=== PATIENT | female | born 1935 | race Caucasian/White ===

== ENCOUNTER 2021-07-27 18:53 | Inpatient (IN) | payer MEDICARE, SELFPAY ==
--- NOTE | ~2021-07-27 | XR_ITS ---
EXAMINATION: XR CHEST CLINICAL INFORMATION: Shortness of breath, dyspnea., Congestive heart failure, pneumonia COMPARISON: Chest CT 12/11/2017 TECHNIQUE: 2 views of the chest were obtained. FINDINGS: Calcified aortic arch. No focal consolidation or mass. No pleural effusion or pneumothorax. Normal pulmonary vascularity. The prior chest CT showed numerous pulmonary nodules, not seen by chest x-ray, either resolved or not seen for technical reasons. Normal heart size. Severe degenerative changes of the shoulders. XR/XR chest 2V IMPRESSION: No acute pulmonary disease. The prior chest CT showed numerous small pulmonary nodules which are not seen on the current chest x-ray possibly resolved or not seen for technical reasons.
--- NOTE | ~2021-07-27 | XR_ITS ---
EXAMINATION: XR SHOULDER, RIGHT CLINICAL INFORMATION: Pain. COMPARISON: Chest radiograph dated 07/27/2021 TECHNIQUE: Two views of the right shoulder. FINDINGS: There is severe degenerative arthritis in the right shoulder with joint space narrowing, marginal osteophytes, and articular cortical remodeling. There is degenerative arthritis in the acromioclavicular joint with soft tissue mineralization. Bones are osteopenic. No acute fractures are identified on these images. Soft tissues are unremarkable. XR/XR shoulder RT min 2V IMPRESSION: No acute fracture or malalignment at the right shoulder. 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
--- NOTE | ~2021-07-27 | US_ITS ---
EXAMINATION: US ABDOMEN COMPLETE CLINICAL INFORMATION: Elevated LFTs and right upper quadrant pain. COMPARISON: CT scan of the abdomen and pelvis dated 10/14/2018 TECHNIQUE: Real-time imaging of the abdominal viscera. There is some limitation secondary to bowel gas shadowing. FINDINGS: PANCREAS: Visualized portions unremarkable. ABDOMINAL AORTA: Visualized portions unremarkable. INFERIOR VENA CAVA: Visualized portions unremarkable. LIVER: Unremarkable. GALLBLADDER: No intraluminal abnormality, significant mural thickening or pericholecystic fluid. COMMON BILE DUCT: Normal in caliber measuring 0.4 cm in diameter. RIGHT KIDNEY: 8.2 cm. Unremarkable. LEFT KIDNEY: 10.0 cm. Unremarkable. SPLEEN: 9.8 cm. Unremarkable. FREE FLUID: None. US/US abdomen complete IMPRESSION: Unremarkable abdominal ultrasound.
[2021-07-27 19:04] VITALS: BP 150/90; BP 166/69; PULSE 89; PULSE 95; RESP 20; TEMP 36.6; O2SAT 97; O2SAT 98; BMI 26.1
--- NOTE | 2021-07-27 19:21 | ECG_ITS ---
Test Reason : CP Blood Pressure : / mmHG Vent. Rate : 089 BPM Atrial Rate : 089 BPM P-R Int : 196 ms QRS Dur : 126 ms QT Int : 410 ms P-R-T Axes : 063 -03 -03 degrees QTc Int : 498 ms Sinus rhythm with Premature atrial complexes Right bundle branch block Abnormal ECG When compared with ECG of 14-OCT-2018 03:15, Premature atrial complexes are now Present PA interval has decreased Questionable change in QRS duration Referred By: Urbano Ko Electronically Signed By:Conrado Wilder
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
[2021-07-27 22:01] LABS: MANUAL DIFF FLAG NO
[2021-07-27 22:02] LABS: Basophils Percent Auto 0.1 % (0-2); Eosinophils Percent Auto 0.1 % (0-4); Hematocrit 36.7 % (37.0-47.0); Hemoglobin 12.6 g/dl (12.0-16.0); Imm Gran Abs Auto 0.05 X10*3/uL (0.00-0.03); Imm Gran Pct Auto 0.4 % (0.0-0.4); Lymphocytes Absolute Auto 1.2 X10*3/uL (1.2-4.9); Lymphocytes Percent Auto 8.3 % (20-40); Mean Corpuscular HGB Conc 34.3 g/dl (31.0-35.0); Mean Corpuscular Hemoglobin 32.8 pg (27.0-33.0); Mean Corpuscular Volume 95.6 fL (80.0-98.0); Mean Platelet Volume 8.3 fL (9.4-12.3); Monocytes Absolute Auto 0.8 X10*3/uL (0.1-1.2); Monocytes Percent Auto 5.7 % (2-11); Neutrophils Absolute Auto 12.1 x10*3/uL (2.0-8.3); Neutrophils Percent Auto 85.4 % (45-73); Platelet Count 226 X10*3/uL (160-400); Red Blood Count 3.84 X10*6/uL (4.20-5.50); Red Cell Distribution Width 13.7 % (11.0-16.0); White Blood Count 14.2 X10*3/uL (4.8-10.8)
[2021-07-27 22:11] LABS: Lactic Acid 1.1 mmol/L (0.5-2.0)
[2021-07-27 22:16] LABS: COVID-19 Test Negative (Negative)
[2021-07-27 22:20] LABS: Troponin-I High Sensitivity 42.1 ng/L (<3.5-17.0)
[2021-07-27 22:21] LABS: Alanine Aminotransferase 1942 U/L (0-31); Albumin Level 4.1 g/dL (3.5-5.0); Alkaline Phosphatase 136 U/L (39-117); Anion Gap 15 (12-20); Aspartate Amino Transferase 1320 U/L (5-31); B Type Natriuretic Peptide 378 pg/mL (<100); Bilirubin Total 0.8 mg/dL (0.0-1.0); Blood Urea Nitrogen 33 mg/dL (9-16); Calcium 9.6 mg/dL (8.4-10.2); Carbon Dioxide 27 mmol/L (22-29); Chloride 95 mmol/L (96-108); Creatinine Clr Calc Pharmacy 35.2; Estimated Glomerular Filt Rate 59; Glucose Random 151 mg/dL (60-115); Lipase 125 U/L (8-78); Potassium 4.5 mmol/L (3.3-5.1); Sodium 132 mmol/L (135-145); Total Protein 6.6 g/dL (6.5-8.0)
[2021-07-27 22:24] VITALS: BP 173/64; PULSE 115; RESP 20; TEMP 36.6; O2SAT 98
[2021-07-27 22:47] VITALS: BP 167/65; PULSE 81; TEMP 36.7; O2SAT 97
--- NOTE | 2021-07-27 23:10 | ECG_ITS ---
Test Reason : chest pain Blood Pressure : / mmHG Vent. Rate : 099 BPM Atrial Rate : 099 BPM P-R Int : 208 ms QRS Dur : 120 ms QT Int : 394 ms P-R-T Axes : 080 -12 -22 degrees QTc Int : 505 ms Sinus rhythm with Premature atrial complexes Right bundle branch block Abnormal ECG When compared with ECG of 27-JUL-2021 19:19, No significant change was found Referred By: Urbano Ko Electronically Signed By:Conrado Wilder
[2021-07-27 23:25] LABS: Ethanol < 10 mg/dL
[2021-07-27 23:38] LABS: Delay - Chemistry DELAY
[2021-07-27 23:39] LABS: Acetaminophen LAB 10 mcg/mL (<30)
[2021-07-27 23:45] VITALS: BP 163/64; PULSE 117; RESP 13; O2SAT 96
[2021-07-28] VITALS (9 sets, daily range): BP systolic 134–167; BP diastolic 64–106; PULSE 64–130; RESP 14–32; TEMP 35.6–36.9; O2SAT 95–98
[2021-07-28 00:14] LABS: Partial Thromboplastin Time 28.7 SEC (24.1-38.0)
--- NOTE | 2021-07-28 00:36 | PM.IMHP ---
History of Present Illness Date of Service: 07/28/21 Chief Complaint: shortness of breath 86-year-old female with a past medical history of hypertension, hyperlipidemia, diabetes, chronic back pain, anxiety, depression presented to the hospital with a chief complaint of shortness of breath. Patient reported that she has chronic back pain and has been taking oxycodone about 4-5 times per day. For the past 1 week she has stopped taking Oxycodone as was not given by her daughter. And has been on Tylenol which she takes 8 pills per day for the past 7-8 days. Reports that over the past 2 days she has been having shortness of breath, chest pain, dyspnea on exertion. Also complains of diarrhea. Denies any fever chills and cough. Currently denies any active chest pain at the time of my interview. Patient reports that she is mostly sedentary at home usually goes down for dinner from her room Patient denies any cough or sputum production. Denies any urinary symptoms. Review of all other systems is negative except mentioned above ER course: Per ER team patient noted to be tachycardic; EKG showed sinus arrhythmia; troponin 42.1-31.5; patient noted to have Tylenol level less than 10 -concern for an intentional Tylenol overdose. Liver enzymes elevated to AST 13 20, ALT 1942, T bili 0.8, INR 1.2. Patient mentating well; ammonia level 67. Given concerns for liver toxicity secondary to Tylenol overdose-ER team discussed with poison control who suggested to start the patient on NAC protocol and admitted to the general medical floors. Also recommended to repeat liver panel every 8 hours. D-dimer was positive-CT chest pending. [facility] Pertinent family history: Reviewed Social History Advance Directives: No Meds Allergies Allergy/AdvReac Type Severity Reaction Status Date / Time No Known Allergies Allergy Unverified 02/10/20 14:39 Active Medications: Current Medications Acetylcysteine 5,860 mg/ (Dextrose) 1,029.3 mls @ 62.5 mls/hr IV ONCE ONE Stop: 07/28/21 21:28 Acetylcysteine 8,790 mg/ (Dextrose) 243.95 mls @ 200 mls/hr IV ONCE ONE Stop: 07/28/21 01:13 Acetylcysteine 2,930 mg/ (Dextrose) 514.65 mls @ 125 mls/hr IV ONCE ONE Stop: 07/28/21 05:07 Home Medications Medication Instructions Recorded Confirmed Last Taken Type amitriptyline 50 mg tablet mg PO 07/28/21 Unknown History atenolol 25 mg tablet 1 tab PO DAILY 07/28/21 07/28/21 Unknown History escitalopram oxalate 20 mg tablet 1 tab PO DAILY 07/28/21 07/28/21 Unknown History hydrochlorothiazide 25 mg tablet 1 tab PO DAILY 07/28/21 07/28/21 Unknown History ketoconazole 2 % topical cream 1 appl TOPICAL DAILY 07/28/21 07/28/21 Unknown History melatonin 3 mg tablet 1 tab PO BEDTIME PRN 07/28/21 07/28/21 Unknown History metformin 500 mg tablet 1 tab PO BID 07/28/21 07/28/21 Unknown History perphenazine 4 mg tablet 1 tab PO BID 07/28/21 07/28/21 Unknown History pravastatin 40 mg tablet 1 tab PO BEDTIME 07/28/21 07/28/21 Unknown History sertraline 25 mg tablet 1 tab PO DAILY 07/28/21 07/28/21 Unknown History Physical Exam Vital Signs and Narrative: Vital Signs: Last Vital Signs Temp 98.1 F 07/27/21 22:47 Pulse 117 H 07/27/21 23:45 Resp 13 07/27/21 23:45 BP 163/64 H 07/27/21 23:45 Pulse Ox 96 07/27/21 23:45 BMI result Body Mass Index 26.1 Gen: Appears be in no acute distress HEENT: NCAT, Moist mucosa. Pulmonary: Vesicular breath sounds, fair air entry CVS: Normal S1-S2 Abdomen: BS+, Soft, Nontender Extremities: Warm well perfused Neuro: Alert and awake. Results Labs CBC and Chem 7: 07/28/21 05:55 07/27/21 21:53 Labs: Laboratory Results - last 24 hr 07/27/21 07/27/21 07/27/21 21:53 21:53 21:53 MCV MCH MCHC RDW Plt Count MPV Immature Gran % (Auto) Neut % (Auto) Lymph % (Auto) [place] % (Auto) Eos % (Auto) Baso % (Auto) Lymph # (Auto) [place] # (Auto) Eos # (Auto) Baso # (Auto) Abs Immat Gran (auto) Absolute Neuts (auto) Absolute Nucleated RBC Nucleated RBC % (auto) APTT Anion Gap 15 Estim Creat Clear Calc 35.2 Estimated GFR 59 Random Glucose 151 H Lactic Acid Calcium 9.6 Total Bilirubin 0.8 AST 1320 H ALT 1942 H Alkaline Phosphatase 136 H B-Natriuretic Peptide 378 H Total Protein 6.6 Albumin 4.1 Lipase 125 H Specimen Comment Acetaminophen 10 Ethyl Alcohol COVID-19 (BRENDA) Negative COVID-19 Clin Com See Note 07/27/21 07/27/21 07/27/21 21:53 21:53 21:54 MCV 95.6 MCH 32.8 MCHC 34.3 RDW 13.7 Plt Count 226 MPV 8.3 L Immature Gran % (Auto) 0.4 Neut % (Auto) 85.4 H Lymph % (Auto) 8.3 L [place] % (Auto) 5.7 Eos % (Auto) 0.1 Baso % (Auto) 0.1 Lymph # (Auto) 1.2 [place] # (Auto) 0.8 Eos # (Auto) 0.0 Baso # (Auto) 0.0 Abs Immat Gran (auto) 0.05 H Absolute Neuts (auto) 12.1 H Absolute Nucleated RBC 0.000 Nucleated RBC % (auto) 0.0 APTT Anion Gap Estim Creat Clear Calc Estimated GFR Random Glucose Lactic Acid 1.1 Calcium Total Bilirubin AST ALT Alkaline Phosphatase B-Natriuretic Peptide Total Protein Albumin Lipase Specimen Comment Acetaminophen Ethyl Alcohol < 10 COVID-19 (BRENDA) COVID-19 Clin Com 07/27/21 07/27/21 23:37 23:43 MCV MCH MCHC RDW Plt Count MPV Immature Gran % (Auto) Neut % (Auto) Lymph % (Auto) [place] % (Auto) Eos % (Auto) Baso % (Auto) Lymph # (Auto) [place] # (Auto) Eos # (Auto) Baso # (Auto) Abs Immat Gran (auto) Absolute Neuts (auto) Absolute Nucleated RBC Nucleated RBC % (auto) APTT 28.7 Anion Gap Estim Creat Clear Calc Estimated GFR Random Glucose Lactic Acid Calcium Total Bilirubin AST ALT Alkaline Phosphatase B-Natriuretic Peptide Total Protein Albumin Lipase Specimen Comment DELAY Acetaminophen Ethyl Alcohol COVID-19 (BRENDA) COVID-19 Clin Com Imaging Radiologist's Impressions: Impressions Chest X-Ray 07/27/21 21:35 IMPRESSION: No acute pulmonary disease. The prior chest CT showed numerous small pulmonary nodules which are not seen on the current chest x-ray possibly resolved or not seen for technical reasons. Assessment and Plan (1) Unintentional Tylenol overdose: Status: Acute (2) Abnormal LFTs (liver function tests): Status: Acute Plan 86-year-old female with a past medical history of hypertension, hyperlipidemia, diabetes, chronic back pain, anxiety, depression presented to the hospital with a chief complaint of shortness of breath/ARMSTRONG, chest pain. SOB/ARMSTRONG/chest pain: Currently denies any chest pain. EKG nonischemic. Troponins indeterminate and plateaued. D-dimer positive-CT chest pending Tachycardia: Likely in the setting of dehydration. Patient continued her home metoprolol. Also given gentle IV fluids. unintentional Tylenol overdose/ liver injury: poison control was notified-recommended Monitor liver enzymes every 8 hours. started on NAC protocol patient currently mentating well INR is 1.2. Mildly elevated ammonia levels of 67--> lactulose ? opiate withdrawal: Patient's of oxycodone 7-8 days ago. will monitor on COWS protocol. Addiction medicine consult Poor access: patient has very poor access. ER team tried multiple times with no significant success. I spoke to ER attending who is going to put an IJ line. Unable to finish the CT scan given access concerns. Will be sent after the IJ line is placed. Hypertension: Continue home atenolol Diabetes: Insulin sliding scale Anxiety / depression: Continue home medications DVT prophylaxis: SCD boots Code status: Full code off note: Patient reports that patient's daughter has not been giving her home oxycodone. Will consult case management/social service technician for home safety evaluation. Quality Stroke Does the patient have a stroke diagnosis?: No VTE Prior VTE?: No VTE Risk Level:: Medical - moderate - high VTE Device Contraindication: N/A - Device Ordered VTE Drug Contraindication: Treatment Not Indicated
[2021-07-28 00:40] LABS: INTERNATIONAL NORM RATIO 1.2 (0.9-1.1); Prothrombin Time 14.1 SEC (9.9-13.0)
[2021-07-28] MEDS: Morphine Sulfate 4 MG/ML CARTRIDGE IVPUSH (00:47)
[2021-07-28 01:13] LABS: Salicylate < 5.0 mg/dL (15-30)
--- NOTE | 2021-07-28 01:19 | PC.NURSE ---
Helped pt to commode. Pt still had jeans on, helped take them off and soiled depends. Pt wanted a new depend got underwear and pad for pt. got her comfortable in bed with warm blankets and a pillow.
[2021-07-28 01:32] LABS: Ammonia 67 umol/L (13-55)
[2021-07-28 01:44] LABS: Troponin-I High Sensitivity 31.5 ng/L (<3.5-17.0)
[2021-07-28] MEDS: atenoloL 25 MG TABLET PO (02:44)
[2021-07-28 03:09] LABS: D Dimer High Sensitivity 733 NG/ML
[2021-07-28] MEDS: 0.9 % Sodium Chloride 500 ML IV (05:16)
--- NOTE | 2021-07-28 06:00 | PC.NURSE ---
Multiple RNs attempted to obtain IV access prior to PT receiving CTA. IV access was established in left AC prior to being transported to CT. During CT scan contrast infusion, the vein blew and infusion infiltrated. Hospitalist made aware, plan was for ED provider to obtain IV access through IJV and then complete CT scan.
[2021-07-28 06:26] LABS: MANUAL DIFF FLAG NO
[2021-07-28 06:31] LABS: Basophils Percent Auto 0.2 % (0-2); Eosinophils Percent Auto 0.3 % (0-4); Hemoglobin 11.9 g/dl (12.0-16.0); Imm Gran Abs Auto 0.04 X10*3/uL (0.00-0.03); Imm Gran Pct Auto 0.3 % (0.0-0.4); Lymphocytes Absolute Auto 1.2 X10*3/uL (1.2-4.9); Lymphocytes Percent Auto 9.9 % (20-40); Mean Corpuscular Hemoglobin 32.3 pg (27.0-33.0); Mean Corpuscular Volume 95.1 fL (80.0-98.0); Mean Platelet Volume 8.8 fL (9.4-12.3); Monocytes Absolute Auto 0.9 X10*3/uL (0.1-1.2); Monocytes Percent Auto 7.2 % (2-11); Neutrophils Absolute Auto 9.6 x10*3/uL (2.0-8.3); Neutrophils Percent Auto 82.1 % (45-73); Platelet Count 221 X10*3/uL (160-400); Red Blood Count 3.68 X10*6/uL (4.20-5.50); Red Cell Distribution Width 13.2 % (11.0-16.0); White Blood Count 11.8 X10*3/uL (4.8-10.8)
[2021-07-28 06:48] LABS: Anion Gap 12 (12-20); Blood Urea Nitrogen 28 mg/dL (9-16); Calcium 8.5 mg/dL (8.4-10.2); Carbon Dioxide 27 mmol/L (22-29); Chloride 97 mmol/L (96-108); Creatinine Clr Calc Pharmacy 38.6; Estimated Glomerular Filt Rate > 60; Glucose Random 222 mg/dL (60-115); Potassium 3.1 mmol/L (3.3-5.1); Sodium 133 mmol/L (135-145)
[2021-07-28 07:19] LABS: Glucose, Whole Blood 174 mg/dL (60-115)
[2021-07-28 07:46] LABS: Alanine Aminotransferase 1564 U/L (0-31); Albumin Level 3.5 g/dL (3.5-5.0); Alkaline Phosphatase 114 U/L (39-117); Aspartate Amino Transferase 794 U/L (5-31); Bilirubin Direct 0.3 mg/dL (0.0-0.5); Bilirubin Total 0.5 mg/dL (0.0-1.0); Total Protein 5.5 g/dL (6.5-8.0)
--- NOTE | 2021-07-28 08:14 | PC.NURSE ---
Pt is a/o requesting to leave AMA to go home and take care of her . Despite multiple attempts to educate pt on tylenol OD and toxicity. Dr Torrez at bedside to speak with patient.
[2021-07-28] MEDS: Insulin Lispro 100 UNIT/ML 3 ML VIAL SUBCUT ×4 (08:17→20:59)
[2021-07-28] MEDS: Lactulose 20 GM/30 ML SOLUTION PO (08:18)
[2021-07-28] MEDS: Dextrose 5 % and 0.45 % NaCl 1,000 ML 75 ML IVCONT (08:31)
--- NOTE | 2021-07-28 09:23 | PC.NURSE ---
RN spoke with poison control and they recommend the following tests around 8pm. 1. Tylenol level 2. Liver function panel 3. INR Will notify about orders. Call back number for [place] [facility] is [phone]. notified at 0927am
[2021-07-28] MEDS: Morphine Sulfate 2 MG/ML CARTRIDGE IVPUSH ×2 (12:52→21:03)
--- NOTE | 2021-07-28 12:57 | PC.NURSE ---
Pt started talking about leaving AMA again. Pt education provided. Dr Wadsworth made aware. Pt provided with morphine for pain, and pt requesting imodium to help with her colitis diarrhea. Dr Wadsworth made aware.
[2021-07-28 12:59] LABS: Glucose, Whole Blood 156 mg/dL (60-115)
[2021-07-28] MEDS: Loperamide HCl 2 MG CAPSULE PO (13:42)
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
[2021-07-28 16:31] LABS: Glucose, Whole Blood 158 mg/dL (60-115)
--- NOTE | 2021-07-28 18:06 | PM.EVENT ---
Event Note Date of Service: 07/28/21 Event Note: GI Consult-Full note dictated-Hx via patient and EMR Imp: Acute hepatitis due to probable Acetaminophen toxicity based on labs and clinical history. She does not appear to have any chronic underlying liver disease based on her exam and history. She has no signs of right-sided heart failure. Her labs look improved today and there are no signs of liver failure. She does describe some RUQ discomfort and does have some RUQ tenderness, but overall appears very comfortable. Rec: Complete Acetylcysteine protocol, follow LFT's, check abdominal U/S(ordered), supportive care, and hold statin until LFT's normalize as an outpatient. I have also ordered hepatitis viral serologies and autoimmune markers re: acute hepatitis, but I do suspect they will be negative. D/W patient. Thanks
--- NOTE | 2021-07-28 20:08 | CONS_ITS ---
DATE OF SERVICE: 07/28/2021 REQUESTING PHYSICIAN: Dr. Sanchez. REASON FOR CONSULTATION: Elevated LFTs. HISTORY OF PRESENT ILLNESS: The patient is an 86-year-old female, who describes the onset of some progressive weakness, nausea, and feeling shaky. She was also having some chest discomfort. She came to the ER for evaluation and was found to have markedly elevated liver enzymes. The patient denies any previous history of liver disease in herself nor family members. She does not use any alcohol. She has not been using any new prescription medication and is on a chronic statin for cholesterol. However, she does describe using a lot of Tylenol over the past 10 to 14 days. She describes using 2 extra-strength Tylenol at least 4 times a day for some pain. She does not use any NSAIDs. She denies any signs of jaundice. She does have some intermittent right upper quadrant pain, although that seems to be more chronic. She denies any vomiting. She did not notice any particular diarrhea, melena, nor hematochezia. She has not noticed any lower extremity edema nor discolored urine. She denies any known fevers at home. MEDICATIONS: At home include amitriptyline, atenolol, escitalopram, hydrochlorothiazide, melatonin p.r.n., metformin, pravastatin, and perphenazine. Her medications here in the hospital include IV acetylcysteine, atenolol, sliding scale insulin, Imodium p.r.n., morphine p.r.n., and Senokot p.r.n. PAST MEDICAL HISTORY: 1. Hysterectomy. 2. Appendectomy. 3. Hypertension. 4. Hyperlipidemia. 5. Diabetes mellitus. 6. Chronic back pain. 7. Anxiety and depression. She denies any history of DE, stroke, nor kidney disease. SOCIAL HISTORY: She does not smoke nor use any alcohol. She is and lives with her family and . FAMILY HISTORY: Noncontributory. REVIEW OF SYSTEMS: CONSTITUTIONAL: Up until the past week or so, she reports that she has been feeling fairly well with good appetite. SKIN: No rash, no pruritus. CARDIAC: No chest pain. PULMONARY: No coughing or hemoptysis. GI: As above. PHYSICAL EXAMINATION: GENERAL: The patient is a pleasant, alert, comfortable-appearing female, in no distress. She has been afebrile. SKIN: Warm, dry. No spider angiomata. NECK: Supple without lymphadenopathy. CARDIAC: Normal S1, S2. ABDOMEN: Soft, nondistended. Normal bowel sounds with some mild right upper quadrant tenderness without palpable mass. EXTREMITIES: Without edema. LABORATORY DATA: White blood cell count on admission was 14.2 with repeat of 11.8, hemoglobin 11.9, and platelets 221,000. Her PT was 14.1 with INR 1.2. Her initial chemistries revealed a sodium 132, potassium 4.5, BUN 33, creatinine 0.9, total bilirubin 0.8, AST 1320, ALT 1942, and alkaline phosphatase 136. In June of 2019, she had a normal liver profile except for an alkaline phosphatase 157. Her lipase was 125. Repeat laboratories from this morning revealed total bilirubin 0.5, AST down to a level of 794, ALT down to a level of 1564, and alkaline phosphatase were 114. Ammonia level was 67. Albumin 3.5. Her toxicology screen revealed an acetaminophen level of 10 as of 10 p.m. last evening. Salicylates less than 5.0 and alcohol levels nondetectable. Chest x-ray was negative for any acute disease. IMPRESSION: Given the patient's clinical history, this seems consistent with an acute hepatitis in relation to acetaminophen toxicity. She does not show any signs of liver failure and her abdominal exam seems benign. She does not show any stigmata of chronic liver disease on her exam nor by her laboratories. She does appear to be already improving based on her laboratories on the IV acetylcysteine protocol. At this point. I would continue completion of the acetylcysteine IV protocol. I will continue to follow her LFTs. I would check an abdominal ultrasound to be complete given the elevated LFTs and the occasional right upper quadrant discomfort. I would otherwise continue supportive care. I would hold her statin medication untll her LFTs completely normalize as an outpatient and she can follow up with her primary care doctor. I did order hepatitis viral serologies, and autoimmune markers regarding the acute hepatitis, but I do suspect those will be negative, and again I feel this is consistent with acetaminophen toxicity. This has been discussed with the patient. Thank you for the consultation. MD XIN Scherer/DIAMOND / [id number] SADE
[2021-07-28 20:26] LABS: INTERNATIONAL NORM RATIO 1.2 (0.9-1.1); Prothrombin Time 13.9 SEC (9.9-13.0)
[2021-07-28 20:27] LABS: Glucose, Whole Blood 159 mg/dL (60-115)
[2021-07-28 20:46] LABS: Alanine Aminotransferase 1238 U/L (0-31); Albumin Level 3.5 g/dL (3.5-5.0); Alkaline Phosphatase 121 U/L (39-117); Aspartate Amino Transferase 383 U/L (5-31); Bilirubin Direct 0.3 mg/dL (0.0-0.5); Bilirubin Total 0.5 mg/dL (0.0-1.0); Total Protein 5.6 g/dL (6.5-8.0)
[2021-07-28] MEDS: 0.9 % Sodium Chloride Flush 3 ML SYRINGE IVFLUSH (20:59)
[2021-07-28 21:01] LABS: Acetaminophen LAB < 1 mcg/mL (<30)
[2021-07-29] VITALS (8 sets, daily range): BP systolic 130–173; BP diastolic 60–86; PULSE 50–128; RESP 14–18; TEMP 35.9–36.3; O2SAT 94–98
[2021-07-29 06:25] LABS: Hematocrit 32.7 % (37.0-47.0); Hemoglobin 11.2 g/dl (12.0-16.0); Mean Corpuscular HGB Conc 34.3 g/dl (31.0-35.0); Mean Corpuscular Hemoglobin 32.3 pg (27.0-33.0); Mean Corpuscular Volume 94.2 fL (80.0-98.0); Mean Platelet Volume 8.8 fL (9.4-12.3); Platelet Count 200 X10*3/uL (160-400); Red Blood Count 3.47 X10*6/uL (4.20-5.50); Red Cell Distribution Width 13.3 % (11.0-16.0); White Blood Count 7.3 X10*3/uL (4.8-10.8)
[2021-07-29 06:29] LABS: INTERNATIONAL NORM RATIO 1.2 (0.9-1.1); Prothrombin Time 14.1 SEC (9.9-13.0)
[2021-07-29 07:14] LABS: Alanine Aminotransferase 927 U/L (0-31); Albumin Level 3.2 g/dL (3.5-5.0); Alkaline Phosphatase 100 U/L (39-117); Anion Gap 12 (12-20); Aspartate Amino Transferase 216 U/L (5-31); Bilirubin Direct 0.4 mg/dL (0.0-0.5); Bilirubin Total 0.5 mg/dL (0.0-1.0); Blood Urea Nitrogen 14 mg/dL (9-16); Calcium 8.4 mg/dL (8.4-10.2); Carbon Dioxide 26 mmol/L (22-29); Chloride 98 mmol/L (96-108); Creatinine Clr Calc Pharmacy 46.4; Estimated Glomerular Filt Rate > 60; Glucose Fasting 185 mg/dL (60-99); Sodium 133 mmol/L (135-145); Total Protein 5.1 g/dL (6.5-8.0)
[2021-07-29 08:20] LABS: Glucose, Whole Blood 200 mg/dL (60-115)
--- NOTE | 2021-07-29 08:26 | P.PNIM_ITS ---
Subjective Subjective Date of Service: 07/29/21 Interval History: cc: chest pain (reporting taking lots of tylenol) interval history: overall feeling better, did not sleep well Cardiovascular Cardiovascular: Reports no additional cardiovascular complaints Respiratory Respiratory: Reports no additional respiratory complaints Physical Exam 2 Vital Signs: Vital Signs: Last Vital Signs Temp 96.8 F 07/29/21 07:14 Pulse 50 07/29/21 07:14 Resp 18 07/29/21 07:14 BP 173/81 H 07/29/21 07:14 Pulse Ox 94 07/29/21 07:14 BMI result Body Mass Index 26.1 General: AO X 3, no acute distress Resp: CTA bilateral, no accessory muscles used CVS: S1,S2,RRR GI: soft, non tender, non distended Neuro: motor grossly intact, alert Psych: appropriate affect, appropriate insight Objective Data Active Medications Dextrose (Dextrose 50 % 25 Gm/50 Ml Vial) 25 gm IVPUSH Q15M PRN; Protocol PRN Reason: per Hypoglycemia Standing Ord. Glucose (Glucose Gel 15 Gm Gel..Gram.) 15 gm PO Q15M PRN; Protocol PRN Reason: per Hypoglycemia Standing Ord. Acetylcysteine 5,860 mg/ (Dextrose) 1,029.3 mls @ 64.331 mls/hr IV ONCE ONE Stop: 07/29/21 14:59 Last Admin: 07/28/21 23:04 Dose: 64.33 mls/hr Documented by: JUAN Insulin Human Lispro (Insulin Lispro 100 Unit/Ml 3 Ml Vial) [facility]; Protocol Last Admin: 07/28/21 20:59 Dose: 2 unit Documented by: JUAN Loperamide HCl (Loperamide Hcl 2 Mg Capsule) 2 mg PO Q6H PRN PRN Reason: Diarrhea Last Admin: 07/28/21 13:42 Dose: 2 mg Documented by: JOSE Morphine Sulfate (Morphine Sulfate 2 Mg/Ml Cartridge) 2 mg IVPUSH Q3H PRN; Protocol PRN Reason: moderate pain Last Admin: 07/28/21 21:03 Dose: 2 mg Documented by: JUAN Senna (Sennosides 8.6 Mg Tablet) 17.2 mg PO BEDTIME PRN PRN Reason: Constipation Sodium Chloride (0.9 % Sodium Chloride Flush 3 Ml Syringe) 3 ml IVFLUSH QSHIFT FILIPPO Last Admin: 07/28/21 20:59 Dose: 3 ml Documented by: JUAN Labs CBC & Chem 7: 07/29/21 05:52 07/29/21 05:52 Labs: Laboratory Results - last 24 hr 07/28/21 07/28/21 07/28/21 12:51 15:56 19:32 MCV MCH MCHC RDW Plt Count MPV Absolute Nucleated RBC Nucleated RBC % (auto) PT INR Anion Gap Estim Creat Clear Calc Estimated GFR POC Glucose 156 H 158 H 159 H Fasting Glucose Calcium Total Bilirubin Direct Bilirubin AST ALT Alkaline Phosphatase Total Protein Albumin Acetaminophen 07/28/21 07/28/21 07/29/21 19:57 19:57 05:52 MCV 94.2 MCH 32.3 MCHC 34.3 RDW 13.3 Plt Count 200 MPV 8.8 L Absolute Nucleated RBC 0.000 Nucleated RBC % (auto) 0.0 PT 13.9 H INR 1.2 H Anion Gap Estim Creat Clear Calc Estimated GFR POC Glucose Fasting Glucose Calcium Total Bilirubin 0.5 Direct Bilirubin 0.3 AST 383 H ALT 1238 H Alkaline Phosphatase 121 H Total Protein 5.6 L Albumin 3.5 Acetaminophen < 1 07/29/21 07/29/21 07/29/21 05:52 05:52 07:13 MCV MCH MCHC RDW Plt Count MPV Absolute Nucleated RBC Nucleated RBC % (auto) PT 14.1 H INR 1.2 H Anion Gap 12 Estim Creat Clear Calc 46.4 Estimated GFR > 60 POC Glucose 200 H Fasting Glucose 185 H Calcium 8.4 Total Bilirubin 0.5 Direct Bilirubin 0.4 AST 216 H ALT 927 H Alkaline Phosphatase 100 Total Protein 5.1 L Albumin 3.2 L Acetaminophen Microbiology Microbiology Results: Microbiology 07/27/21 22:08 Blood Culture - Preliminary Blood - Venous No growth after 24 hours. 07/27/21 21:53 Blood Culture - Preliminary Blood - Venous No growth after 24 hours. Assessment and Plan (1) Unintentional Tylenol overdose: Status: Acute Plan 86F presented with vague complaints of chest, back pain, sob, found to have tylenol toxicity acute hepatitis due to unintentional acetominophen overdose lfts improving contnue NAC per toxicology monitor lfts patient denies suicidal ideation opiate dependence with withdrawal addication specialist appreciated continue morphine for now DM inuslin pocs HTN hctz atenolol dvt prophylaxis - lovenox full code reason for continued hospitalization: continues to be at risk for liver failure due to tylenol toxicity, continuing iv nac and close monitoring of LFTs. Quality Stroke Does the patient have a stroke diagnosis?: No VTE Prior VTE?: No VTE Risk Level:: Medical - moderate - high VTE Device Contraindication: N/A - Device Ordered VTE Drug Contraindication: Treatment Not Indicated
[2021-07-29] MEDS: Insulin Lispro 100 UNIT/ML 3 ML VIAL SUBCUT ×4 (08:30→20:55)
[2021-07-29] MEDS: Loperamide HCl 2 MG CAPSULE PO (08:31)
[2021-07-29] MEDS: atenoloL 25 MG TABLET PO (09:21)
[2021-07-29] MEDS: hydroCHLOROthiazide 25 MG TABLET PO (09:21)
[2021-07-29] MEDS: Enoxaparin Sodium 40 MG/0.4 ML SYRINGE SUBCUT (09:22)
--- NOTE | 2021-07-29 11:27 | MHC.CM.PN ---
CALL FROM [facility]. RAMON ASKED IF PATIENT IS ABLE TO PARTICIPATE IN AN INTERVIEW. PER CONVERSATION WITH PATIENT, SHE IS WILLING AND ABLE OT DISCUSS WITH PROTECTIVE SERVICES. RAMON STATES THAT SOMEONE WILL BE HERE THIS WEEK. RAMON ALSO MADE AWARE THAT PATIENT HAS MADE ATTEMPTS TO LEAVE IF PATIENT DOES RETURN HOME, SS WILL BE NOTIFIED.
[2021-07-29 11:58] LABS: Glucose, Whole Blood 261 mg/dL (60-115)
[2021-07-29 16:20] LABS: Glucose, Whole Blood 160 mg/dL (60-115)
[2021-07-29] MEDS: Morphine Sulfate 2 MG/ML CARTRIDGE IVPUSH ×2 (16:37→20:54)
[2021-07-29] MEDS: 0.9 % Sodium Chloride Flush 3 ML SYRINGE IVFLUSH (16:37)
--- NOTE | 2021-07-29 16:58 | PC.NURSE ---
pt reports feeling depressed and expressing suicidal thoughts. [place] scale went over with pt, deemed high risk per the scale. Dr Torrez made aware. Nursing supervisor parachute manufacturing made aware. Sitter placed in room. will continue to monitor
[2021-07-29 19:44] LABS: Glucose, Whole Blood 161 mg/dL (60-115)
[2021-07-29 20:13] LABS: Glucose, Whole Blood 175 mg/dL (60-115)
[2021-07-30] VITALS (8 sets, daily range): BP systolic 135–182; BP diastolic 69–93; PULSE 67–109; RESP 14–18; TEMP 35.8–36.8; O2SAT 95–98
--- NOTE | 2021-07-30 | ECG_ITS ---
Test Reason : FREQUENT PAC'S ? AFIB Blood Pressure : / mmHG Vent. Rate : 121 BPM Atrial Rate : 138 BPM P-R Int : 208 ms QRS Dur : 124 ms QT Int : 334 ms P-R-T Axes : 000 -07 -20 degrees QTc Int : 474 ms Sinus tachycardia with Premature supraventricular complexes Right bundle branch block Abnormal ECG When compared with ECG of 27-JUL-2021 23:24, T wave inversion more evident in Anterior leads Referred By: Jaspreet Torrez Electronically Signed By:EARNEST CAMPBELL MD
[2021-07-30] MEDS: 0.9 % Sodium Chloride Flush 3 ML SYRINGE IVFLUSH ×3 (00:08→17:05)
[2021-07-30] MEDS: Morphine Sulfate 2 MG/ML CARTRIDGE IVPUSH ×2 (01:13→06:51)
[2021-07-30 05:55] LABS: Hematocrit 33.2 % (37.0-47.0); Hemoglobin 11.5 g/dl (12.0-16.0); Mean Corpuscular HGB Conc 34.6 g/dl (31.0-35.0); Mean Corpuscular Hemoglobin 32.7 pg (27.0-33.0); Mean Corpuscular Volume 94.3 fL (80.0-98.0); Mean Platelet Volume 8.8 fL (9.4-12.3); Platelet Count 214 X10*3/uL (160-400); Red Blood Count 3.52 X10*6/uL (4.20-5.50); Red Cell Distribution Width 13.4 % (11.0-16.0); White Blood Count 6.3 X10*3/uL (4.8-10.8)
[2021-07-30 06:03] LABS: INTERNATIONAL NORM RATIO 1.1 (0.9-1.1); Prothrombin Time 12.5 SEC (9.9-13.0)
[2021-07-30 06:19] LABS: Alanine Aminotransferase 646 U/L (0-31); Albumin Level 3.3 g/dL (3.5-5.0); Alkaline Phosphatase 108 U/L (39-117); Anion Gap 12 (12-20); Aspartate Amino Transferase 94 U/L (5-31); Bilirubin Direct 0.3 mg/dL (0.0-0.5); Bilirubin Total 0.5 mg/dL (0.0-1.0); Blood Urea Nitrogen 11 mg/dL (9-16); Calcium 8.8 mg/dL (8.4-10.2); Carbon Dioxide 31 mmol/L (22-29); Chloride 95 mmol/L (96-108); Creatinine Clr Calc Pharmacy 47.8; Estimated Glomerular Filt Rate > 60; Glucose Fasting 139 mg/dL (60-99); Potassium 2.8 mmol/L (3.3-5.1); Sodium 135 mmol/L (135-145); Total Protein 5.5 g/dL (6.5-8.0)
--- NOTE | 2021-07-30 06:43 | PC.NURSE ---
IMC called to floor as patient heart rate went into 150s. Patient was ambulating to bathroom. Heartrate tends to elevate when OOB
[2021-07-30 07:14] LABS: Glucose, Whole Blood 137 mg/dL (60-115)
[2021-07-30 07:43] LABS: HBc Num1 0.06 S/CO (0.00-0.79); Hepatitis B Core Antibody Nonreactive (Nonreactive); ~HepC Num1 0.17 S/CO (0.00-0.79); ~Hepatitis B Surface Antibody NONREACTIVE (Nonreactive); ~Hepatitis C Antibody Nonreactive (Nonreactive)
[2021-07-30 07:50] LABS: Hepatitis B Surface Antigen Negative (Negative)
--- NOTE | 2021-07-30 08:31 | HO.PM.IMPN ---
Subjective Subjective Date of Service: 07/30/21 Interval History: cc: vague pain interval history: pain better, having suicidal thoughts Respiratory Respiratory: Reports no additional respiratory complaints Gastrointestinal Gastrointestinal: Reports no additional gastrointestinal complaints Physical Exam Vital Signs: Vital Signs: Last Vital Signs Temp 97.2 F 07/30/21 06:56 Pulse 69 07/30/21 06:56 Resp 18 07/30/21 06:56 BP 169/69 H 07/30/21 06:56 Pulse Ox 95 07/30/21 06:56 BMI result Body Mass Index 26.1 General: AO X 3, no acute distress Resp: CTA bilateral, no accessory muscles used CVS: S1,S2,RRR GI: soft, non tender, non distended Neuro: motor grossly intact, alert Psych: teary, expressing suicidal thoughts Objective Data Active Medications Atenolol (Atenolol 25 Mg Tablet) 25 mg PO DAILY [facility]; Protocol Last Admin: 07/29/21 09:21 Dose: 25 mg Documented by: THADDEUS Dextrose (Dextrose 50 % 25 Gm/50 Ml Vial) 25 gm IVPUSH Q15M PRN; Protocol PRN Reason: per Hypoglycemia Standing Ord. Enoxaparin Sodium (Enoxaparin Sodium 40 Mg/0.4 Ml Syringe) 40 mg SUBCUT Q24H FILIPPO Last Admin: 07/29/21 09:22 Dose: 40 mg Documented by: THADDEUS Glucose (Glucose Gel 15 Gm Gel..Gram.) 15 gm PO Q15M PRN; Protocol PRN Reason: per Hypoglycemia Standing Ord. Hydrochlorothiazide (Hydrochlorothiazide 25 Mg Tablet) 25 mg PO DAILY [facility]; Protocol Last Admin: 07/29/21 09:21 Dose: 25 mg Documented by: THADDEUS Insulin Human Lispro (Insulin Lispro 100 Unit/Ml 3 Ml Vial) 0 unit SUBCUT QIDACHS [facility]; Protocol Last Admin: 07/29/21 20:55 Dose: 2 unit Documented by: JUANITO Loperamide HCl (Loperamide Hcl 2 Mg Capsule) 2 mg PO Q6H PRN PRN Reason: Diarrhea Last Admin: 07/29/21 08:31 Dose: 2 mg Documented by: THADDEUS Morphine Sulfate (Morphine Sulfate 2 Mg/Ml Cartridge) 2 mg IVPUSH Q3H PRN; Protocol PRN Reason: moderate pain Last Admin: 07/30/21 06:51 Dose: 2 mg Documented by: CHAPIN Senna (Sennosides 8.6 Mg Tablet) 17.2 mg PO BEDTIME PRN PRN Reason: Constipation Sodium Chloride (0.9 % Sodium Chloride Flush 3 Ml Syringe) 3 ml IVFLUSH QSHIFT [facility] Last Admin: 07/30/21 06:52 Dose: 3 ml Documented by: CHAPIN Labs CBC & Chem 7: 07/30/21 05:28 07/30/21 05:28 Labs: Laboratory Results - last 24 hr 07/29/21 07/29/21 07/29/21 05:52 11:31 15:17 MCV MCH MCHC RDW Plt Count MPV Absolute Nucleated RBC Nucleated RBC % (auto) PT INR Anion Gap Estim Creat Clear Calc Estimated GFR POC Glucose 261 H 160 H Fasting Glucose Calcium Total Bilirubin Direct Bilirubin AST ALT Alkaline Phosphatase Total Protein Albumin Hep Bs Antigen Negative Hep Bs Antibody NONREACTIVE Hep B Core Total Ab Nonreactive Hepatitis C Ab (EIA) Nonreactive 07/29/21 07/29/21 07/30/21 18:49 20:00 05:28 MCV 94.3 MCH 32.7 MCHC 34.6 RDW 13.4 Plt Count 214 MPV 8.8 L Absolute Nucleated RBC 0.000 Nucleated RBC % (auto) 0.0 PT INR Anion Gap Estim Creat Clear Calc Estimated GFR POC Glucose 161 H 175 H Fasting Glucose Calcium Total Bilirubin Direct Bilirubin AST ALT Alkaline Phosphatase Total Protein Albumin Hep Bs Antigen Hep Bs Antibody Hep B Core Total Ab Hepatitis C Ab (EIA) 07/30/21 07/30/21 07/30/21 05:28 05:28 07:07 MCV MCH MCHC RDW Plt Count MPV Absolute Nucleated RBC Nucleated RBC % (auto) PT 12.5 INR 1.1 Anion Gap 12 Estim Creat Clear Calc 47.8 Estimated GFR > 60 POC Glucose 137 H Fasting Glucose 139 H Calcium 8.8 Total Bilirubin 0.5 Direct Bilirubin 0.3 AST 94 H ALT 646 H Alkaline Phosphatase 108 Total Protein 5.5 L Albumin 3.3 L Hep Bs Antigen Hep Bs Antibody Hep B Core Total Ab Hepatitis C Ab (EIA) Microbiology Microbiology Results: Microbiology 07/27/21 22:08 Blood Culture - Preliminary Blood - Venous No growth after 48 hours. 07/27/21 21:53 Blood Culture - Preliminary Blood - Venous No growth after 48 hours. Assessment and Plan (1) Unintentional Tylenol overdose: Status: Acute Plan 86F presented with vague complaints of chest, back pain, sob, found to have tylenol toxicity acute hepatitis due to unintentional acetaminophen overdose s/p NAC LFTs significantly improved medical stable for discharge suicidal ideation patient started to express suicidal ideation continue 1:1, BHN eval opiate dependence with withdrawal addication specialist appreciated improved, will change to po oxycodone DM inuslin pocs HTN hctz atenolol dvt prophylaxis - lovenox full code reason for continued hospitalization: medically stable, but risk for self harm, awaiting [facility] eval, ?inpatient placement Quality Stroke Does the patient have a stroke diagnosis?: No VTE Prior VTE?: No VTE Risk Level:: Medical - moderate - high VTE Device Contraindication: N/A - Device Ordered VTE Drug Contraindication: Treatment Not Indicated
[2021-07-30] MEDS: Potassium Chloride ER 20 MEQ TAB.ER.PRT 40 MEQ PO (08:58)
[2021-07-30] MEDS: hydroCHLOROthiazide 25 MG TABLET PO (08:59)
[2021-07-30] MEDS: atenoloL 25 MG TABLET PO (08:59)
[2021-07-30] MEDS: Enoxaparin Sodium 40 MG/0.4 ML SYRINGE SUBCUT (09:01)
--- NOTE | 2021-07-30 11:14 | MHC.CLN ---
NUTRITION CONSULT FOR SKIN. ABRASIONS PRESENT, NO PRESSURE AREAS. PATIENT REPORTS 20# WEIGHT LOSS X 1 WEEK. APPEARS TO BE A POOR HISTORIAN. APPEARS WELL NOURISHED. REPORTS GOOD APPETITE. NO NEW NUTRITION INTERVENTIONS.
[2021-07-30 11:19] LABS: Glucose, Whole Blood 222 mg/dL (60-115)
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
--- NOTE | 2021-07-30 11:49 | MHC.CDI.CONC ---
CDI Concurrent Query Documentation Clarification: PHYSICIAN'S DOCUMENTATION REQUEST Date of Query: 07/30/21 1149 Patient Name: Nitza Levy Admit Date: 07/28/21 Dear Doctor, A review of the medical record indicates additional documentation may be needed. Please review below and update the documentation accordingly. Risk Factors/Clinical Indicators/Treatments Lab findings: potassium 2.8 L Potassium chloride PO once. Please indicate in your progress notes if you are in agreement that the above diagnosis is valid for this patient: LAB DX: Hypokalemia or other etiology of findings Yes, [ ] is a valid diagnosis for this patient No, [ ] is a not a valid diagnosis for this patient Other (please specify) Unable to determine Use of terms such as suspected, likely, concern for, or probable (associated with a specific diagnosis that is being evaluated, monitored, or treated as if it exists) are acceptable and can be coded in the inpatient setting, when documented at the time of discharge. Thank you, Priscilla Shaw [facility], CDIS Extension: [phone] Please use your independent medical judgment in providing your response. THIS QUERY IS PART OF THE PERMANENT MEDICAL RECORD Provider Response: Other Other Diagnosis: hypokalemia
[2021-07-30] MEDS: Insulin Lispro 100 UNIT/ML 3 ML VIAL SUBCUT ×3 (12:17→21:27)
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
[2021-07-30] MEDS: oxyCODONE HCl Immed Release 5 MG TABLET PO ×2 (14:24→19:52)
--- NOTE | 2021-07-30 15:36 | MHC.CM.PN ---
CM MET W/LG CABRERA FROM [facility] AFTER SHE MET W/PT, PER LG SHE WOULD LIKE TO TRY TO GET PT INTO CONGREGATE OR SENIOR HOUSING, LG REPORTS SHE WILL CONTACT PT'S DTR(S) FOR COLLATERALS, LG REPORTS PT IS AGREEABLE IF CAN GO WITH HER AND LG WILL LOOK FURTHER INTO THAT WELL. ANTIC PT WILL D/C TOMORROW 07/31, CM WILL CONT TO FOLLOW D/C NEEDS.
[2021-07-30 16:25] LABS: Glucose, Whole Blood 157 mg/dL (60-115)
--- NOTE | 2021-07-30 18:11 | MHC.CARE ---
Referral for therapy at [facility] completed.
[2021-07-30 20:58] LABS: Glucose, Whole Blood 179 mg/dL (60-115)
[2021-07-30 23:22] LABS: Anti Nuclear Antibody Screen POSITIVE (NEGATIVE)
[2021-07-31] VITALS (10 sets, daily range): BP systolic 146–188; BP diastolic 65–95; PULSE 54–94; RESP 14–18; TEMP 36.3–36.8; O2SAT 93–97
[2021-07-31] MEDS: 0.9 % Sodium Chloride Flush 3 ML SYRINGE IVFLUSH ×3 (01:47→15:59)
[2021-07-31] MEDS: oxyCODONE HCl Immed Release 5 MG TABLET PO ×2 (05:16→09:30)
[2021-07-31 06:04] LABS: Hematocrit 35.2 % (37.0-47.0); Hemoglobin 12.2 g/dl (12.0-16.0); Mean Corpuscular HGB Conc 34.7 g/dl (31.0-35.0); Mean Corpuscular Hemoglobin 32.1 pg (27.0-33.0); Mean Corpuscular Volume 92.6 fL (80.0-98.0); Mean Platelet Volume 10.4 fL (9.4-12.3); Platelet Count 181 X10*3/uL (160-400); Red Cell Distribution Width 13.8 % (11.0-16.0); White Blood Count 8.7 X10*3/uL (4.8-10.8)
[2021-07-31 06:18] LABS: Anion Gap 18 (12-20); Blood Urea Nitrogen 11 mg/dL (9-16); Calcium 9.4 mg/dL (8.4-10.2); Carbon Dioxide 29 mmol/L (22-29); Chloride 90 mmol/L (96-108); Creatinine Clr Calc Pharmacy 48.5; Estimated Glomerular Filt Rate > 60; Glucose Fasting 150 mg/dL (60-99); Magnesium 1.8 mg/dL (1.6-2.6); Potassium 3.9 mmol/L (3.3-5.1); Sodium 133 mmol/L (135-145)
[2021-07-31 07:44] LABS: Glucose, Whole Blood 290 mg/dL (60-115)
[2021-07-31] MEDS: hydroCHLOROthiazide 25 MG TABLET PO (08:19)
[2021-07-31] MEDS: atenoloL 25 MG TABLET PO (08:19)
[2021-07-31] MEDS: Insulin Lispro 100 UNIT/ML 3 ML VIAL SUBCUT ×3 (08:19→21:30)
[2021-07-31] MEDS: Enoxaparin Sodium 40 MG/0.4 ML SYRINGE SUBCUT (08:22)
[2021-07-31] MEDS: Loperamide HCl 2 MG CAPSULE PO (09:30)
[2021-07-31 11:27] LABS: Glucose, Whole Blood 221 mg/dL (60-115)
[2021-07-31] MEDS: Morphine Sulfate 2 MG/ML CARTRIDGE IVPUSH ×3 (12:22→21:31)
--- NOTE | 2021-07-31 14:35 | P.PNIM_ITS ---
Subjective Subjective Date of Service: 07/31/21 Interval History: cc: vague pain interval history: vague pain Cardiovascular Cardiovascular: Reports no additional cardiovascular complaints Respiratory Respiratory: Reports no additional respiratory complaints Physical Exam Vital Signs: Vital Signs: Last Vital Signs Temp 97.8 F 07/31/21 11:12 Pulse 59 07/31/21 11:12 Resp 18 07/31/21 11:12 BP 188/95 H 07/31/21 11:12 Pulse Ox 97 07/31/21 11:12 BMI result Body Mass Index 26.1 General: AO X 3, no acute distress Resp:? CTA bilateral, no accessory muscles used CVS: S1,S2,RRR GI: soft, non tender, non distended Neuro:? motor grossly intact, alert Psych: now denying suicidal thought Objective Data Active Medications Atenolol (Atenolol 25 Mg Tablet) 25 mg PO DAILY [facility]; Protocol Last Admin: 07/31/21 08:19 Dose: 25 mg Documented by: YURIY Dextrose (Dextrose 50 % 25 Gm/50 Ml Vial) 25 gm IVPUSH Q15M PRN; Protocol PRN Reason: per Hypoglycemia Standing Ord. Enoxaparin Sodium (Enoxaparin Sodium 40 Mg/0.4 Ml Syringe) 40 mg SUBCUT Q24H FILIPPO Last Admin: 07/31/21 08:22 Dose: 40 mg Documented by: YURIY Glucose (Glucose Gel 15 Gm Gel..Gram.) 15 gm PO Q15M PRN; Protocol PRN Reason: per Hypoglycemia Standing Ord. Hydrochlorothiazide (Hydrochlorothiazide 25 Mg Tablet) 25 mg PO DAILY [facility]; Protocol Last Admin: 07/31/21 08:19 Dose: 25 mg Documented by: YURIY Insulin Human Lispro (Insulin Lispro 100 Unit/Ml 3 Ml Vial) 0 unit SUBCUT QIDACHS [facility]; Protocol Last Admin: 07/31/21 11:40 Dose: 4 unit Documented by: YURIY Lidocaine HCl (Lidocaine 4 % Cream Kit) 1 appl TOPICAL ONCE PRN; Protocol PRN Reason: moderate pain Loperamide HCl (Loperamide Hcl 2 Mg Capsule) 2 mg PO Q6H PRN PRN Reason: Diarrhea Last Admin: 07/31/21 09:30 Dose: 2 mg Documented by: YURIY Morphine Sulfate (Morphine Sulfate 2 Mg/Ml Cartridge) 2 mg IVPUSH Q4H PRN; Protocol PRN Reason: moderate pain Last Admin: 07/31/21 12:22 Dose: 2 mg Documented by: YURIY Oxycodone HCl (Oxycodone Hcl Immed Release 5 Mg Tablet) 5 mg PO Q4H PRN PRN Reason: moderate pain Last Admin: 07/31/21 09:30 Dose: 5 mg Documented by: YURIY Senna (Sennosides 8.6 Mg Tablet) 17.2 mg PO BEDTIME PRN PRN Reason: Constipation Sodium Chloride (0.9 % Sodium Chloride Flush 3 Ml Syringe) 3 ml IVFLUSH QSHIFT FILIPPO Last Admin: 07/31/21 08:19 Dose: 3 ml Documented by: YURIY Labs CBC & Chem 7: 07/31/21 05:36 07/31/21 05:36 Labs: Laboratory Results - last 24 hr 07/29/21 07/30/21 07/30/21 05:52 16:07 20:52 MCV MCH MCHC RDW Plt Count MPV Absolute Nucleated RBC Nucleated RBC % (auto) Anion Gap Estim Creat Clear Calc Estimated GFR POC Glucose 157 H 179 H Fasting Glucose Calcium Magnesium ISABELA Screen POSITIVE A ISABELA Titer 1:1280 H ISABELA Titer 2 TNP ISABELA Titer 3 TNP ISABELA Pattern SEE NOTE ISABELA Pattern 2 TNP ISABELA Pattern 3 TNP 07/31/21 07/31/21 07/31/21 05:36 05:36 07:08 MCV 92.6 MCH 32.1 MCHC 34.7 RDW 13.8 Plt Count 181 MPV 10.4 Absolute Nucleated RBC 0.000 Nucleated RBC % (auto) 0.0 Anion Gap 18 Estim Creat Clear Calc 48.5 Estimated GFR > 60 POC Glucose 290 H Fasting Glucose 150 H Calcium 9.4 D Magnesium 1.8 ISABELA Screen ISABELA Titer ISABELA Titer 2 ISABELA Titer 3 ISABELA Pattern ISABELA Pattern 2 ISABELA Pattern 3 07/31/21 11:14 MCV MCH MCHC RDW Plt Count MPV Absolute Nucleated RBC Nucleated RBC % (auto) Anion Gap Estim Creat Clear Calc Estimated GFR POC Glucose 221 H Fasting Glucose Calcium Magnesium ISABELA Screen ISABELA Titer ISABELA Titer 2 ISABELA Titer 3 ISABELA Pattern ISABELA Pattern 2 ISABELA Pattern 3 Assessment and Plan (1) Unintentional Tylenol overdose: Status: Acute Plan 86F presented with vague complaints of chest, back pain, sob, found to have tylenol toxicity acute hepatitis due to unintentional acetaminophen overdose s/p NAC LFTs significantly improved medical stable for discharge suicidal ideation seen by BHN, felt not to be risk for self harm opiate dependence with withdrawal addication specialist appreciated improved DM inuslin pocs HTN hctz atenolol dvt prophylaxis - lovenox full code reason for continued hospitalization: no safe discharge plan Quality Stroke Does the patient have a stroke diagnosis?: No VTE Prior VTE?: No VTE Risk Level:: Medical - moderate - high VTE Device Contraindication: N/A - Device Ordered VTE Drug Contraindication: Treatment Not Indicated
[2021-07-31 15:21] LABS: Mitochondrial Antibodies NEGATIVE (NEGATIVE)
--- NOTE | 2021-07-31 15:47 | MHC.CM.PN ---
nurse healthcare specialist note electronic medical record reviewed along with case disucssed with co worker comp field case manager covering 07/30/21 and on multiple disciplianry rounds, , called to assigned protective case workwr john anu [phone] extjhe was suppose to interview patient and family members and get back to us this morning no calls to me or left on the case management message recorder , i called to john x2 around 12.30 and 3pm and left voice message no call back PER HOSPITALIST PATIENT HAS BEEN MEDICALLY CLEARED FOR DISCHARGE BUT WANT TO CHECK WITH [facility] TO SEE IF IT SAFE FOR PATINT TO RETUNR BACK TO HER HOME AWAITE PHONE CALL FROM HER CARE TEAM MET WITH PATIENT AND SHE IS INTERESTED IN RECIVING COUNSELING SERVICES ,CARE Team will refer to [facility] (specialization in seniors), they will reach out to patient directly.
[2021-07-31 15:56] LABS: Glucose, Whole Blood 137 mg/dL (60-115)
[2021-07-31 20:11] LABS: Glucose, Whole Blood 289 mg/dL (60-115)
[2021-08-01] VITALS (9 sets, daily range): BP systolic 117–199; BP diastolic 66–84; PULSE 58–122; RESP 14–20; TEMP 36.2–36.8; O2SAT 94–97
[2021-08-01] MEDS: 0.9 % Sodium Chloride Flush 3 ML SYRINGE IVFLUSH ×4 (00:10→20:42)
[2021-08-01] MEDS: Morphine Sulfate 2 MG/ML CARTRIDGE IVPUSH ×5 (01:32→20:47)
[2021-08-01 08:00] LABS: Glucose, Whole Blood 203 mg/dL (60-115)
[2021-08-01] MEDS: atenoloL 25 MG TABLET PO (08:10)
[2021-08-01] MEDS: Enoxaparin Sodium 40 MG/0.4 ML SYRINGE SUBCUT (08:10)
[2021-08-01] MEDS: hydroCHLOROthiazide 25 MG TABLET PO (08:10)
[2021-08-01] MEDS: Insulin Lispro 100 UNIT/ML 3 ML VIAL SUBCUT ×3 (08:10→20:40)
[2021-08-01 08:36] LABS: Hepatitis A Antibody IgM 0.42 Index (0-0.79); ~Hepatitis A Antibody IgM Nonreactive (Nonreactive)
--- NOTE | 2021-08-01 08:48 | MHC.CM.PN ---
Addendum entered by Elayne Milan RN 08/01/21 10:08: CM ATTEMPTED TO CALL LG BACK AT 9:05AM AND SCHOOL BUS MONITOR REPORTED LG WAS OUT SICK FOR THE LAST TWO DAYS, SCHOOL BUS MONITOR TRANSFERRED THIS CM TO SWIMMING PROFESSOR ELKE, KARAN ANSER AND MESSAGE LEFT. CM CONTACTED ELKE AT 10:02AM AND HE REPORTED HE WAS NOT THE CORRECT SWIMMING PROFESSOR AND TRANSFERRED THIS CM TO BILL WHO IS URI SWIMMING PROFESSOR, BILL REPORTED THAT SHE WOULD REVIEW CASE AND CALL CM BACK SHORTLY, CM AWAITING CALL BACK. Original Note: CM ATTEMPTED TO CONTACT LG CABRERA AT [facility] AT 8:45AM [phone], NO ANSWER, MESSAGE LEFT AND CM WILL REVISIT IF NO RETURN CALL.
--- NOTE | 2021-08-01 10:55 | PM.DS ---
DS: Providers Provider Date of Service: 08/01/21 Date of admission: 07/28/21 00:33 Primary care physician: JORDAN Nye Consults: 07/28/21 00:33 Consult to Gastroenterology Routine Consulting Provider: Dean Le Reason for consultation: transaminitis; tylenol toxicity 07/28/21 04:39 Addiction Medicine Routine Consulting Provider: Jahaira Ritter Reason for consultation: ?opiate withdrawal 07/30/21 08:00 BHN [Consult to Crisis] Stat Reason for consultation: SI, medically cleared Consult to Care Team Routine Comment: Reason for consultation: SI DS: Diagnosis Discharge Diagnosis (1) Unintentional Tylenol overdose: Status: Acute DS: Summary Hospital Course Hospital Course: from initial hpi: Chief Complaint:? shortness of breath ?86-year-old female with a past medical history of hypertension, hyperlipidemia, diabetes,? chronic back pain, anxiety, depression presented to the hospital with a chief complaint of shortness of breath.? Patient reported that she has chronic back pain and has been taking oxycodone about 4-5 times per day.? For the past 1 week she has stopped taking Oxycodone as was not given by her daughter.? And has been on Tylenol which she takes 8 pills per day for the past 7-8 days. Reports that over the past 2 days she has been having shortness of breath, chest pain, dyspnea on exertion.? Also complains of diarrhea. Denies any fever chills and cough.? Currently denies any active chest pain at the time of my interview.? ? Patient reports that she is mostly sedentary at home usually goes down for dinner from her room Patient denies any cough or sputum production.? Denies any urinary symptoms.? Review of all other systems is negative except mentioned above ER course: Per ER team patient noted to be tachycardic; EKG showed sinus arrhythmia; troponin 42.1-31.5; patient noted to have Tylenol level less than 10 -concern for an intentional Tylenol overdose.? Liver enzymes elevated to AST 13 20, ALT 1942, T bili 0.8, INR 1.2.? Patient mentating well; ammonia level 67.? Given concerns for liver toxicity secondary to Tylenol overdose-ER team discussed with poison control who suggested to start the patient on NAC protocol and admitted to the general medical floors.? Also recommended to repeat liver panel every 8 hours. D-dimer was positive-CT chest pending. hospital course: patient was admitted for acute hepatitis due to an intentional acetaminophen overdose. She received N-acetylcysteine protocol and liver function labs returned to normal. She was seen by behavioral health for mentioning suicidal ideation, and felt not to currently be at risk for self-harm, she should follow-up in the community. Patient was treated for opiate dependence with withdrawal, she was seen by development disability specialist and recommended to continue opiates for chronic pain from osteoarthritis. For her diabetes she was continued on insulin, for hypertension she was continued on hydrochlorothiazide and atenolol. Patient is medically stable for discharge home, there is some concern for home safety, therefore, [facility] will follow up with her at home. Time Spent with Patient Time attestation: Total time spent providing and/or coordinating discharge services: Discharge coordination time: Greater than 30 minutes Quality: Stroke Does the patient have a stroke diagnosis?: No Physical Exam Vital Signs: Vital Signs: Last Vital Signs Temp 97.3 F 08/01/21 07:51 Pulse 75 08/01/21 07:51 Resp 14 08/01/21 07:51 BP 117/66 08/01/21 07:51 Pulse Ox 97 08/01/21 07:51 BMI result Body Mass Index 26.1 General: AO X 3, no acute distress Resp: CTA bilateral, no accessory muscles used CVS: S1,S2,RRR GI: soft, non tender, non distended Neuro: motor grossly intact, alert Psych: appropriate affect, appropriate insight DS: Data Data Completed and Pending Labs on day of discharge: Laboratory Results - last 24 hr 07/29/21 07/29/21 07/31/21 05:52 05:52 11:14 POC Glucose 221 H Anti-Mitochondrial Ab NEGATIVE Hepatitis A IgM Ab Nonreactive 07/31/21 07/31/21 08/01/21 15:19 19:18 07:56 POC Glucose 137 H 289 H 203 H Anti-Mitochondrial Ab Hepatitis A IgM Ab Preliminary micro results at discharge 07/27/21 22:08 Blood Culture - Preliminary Blood - Venous No growth after 48 hours. 07/27/21 21:53 Blood Culture - Preliminary Blood - Venous No growth after 48 hours. Discharge Plan Discharge Patient Disposition: Home Health Service Discharge Diagnosis: tyelnol overdose Referrals: Physician,Unknown J [Physician] - 1 Week Discharge Medications: New oxycodone 5 mg Tablet 5 mg PO Q4H PRN (Reason: moderate pain) Qty: 30 0RF Continued metformin 500 mg tablet 500 mg PO BID 0RF pravastatin 40 mg tablet 40 mg PO BEDTIME 0RF atenolol 25 mg tablet 25 mg PO DAILY 0RF melatonin 3 mg tablet 3 mg PO BEDTIME PRN (Reason: insomnia) 0RF amitriptyline 50 mg tablet 50 mg PO BEDTIME 0RF perphenazine 4 mg tablet 4 mg PO BID 0RF hydrochlorothiazide 25 mg tablet 25 mg PO DAILY 0RF ketoconazole 2 % cream 1 appl topical DAILY 0RF escitalopram oxalate 20 mg tablet 20 mg PO DAILY 0RF Discharge Orders: Discharge Order (Routine); Ordered 08/01/21 Ordered By: Jaspreet Torrez Diet: advance to usual diet Activity on Discharge: As tolerated Stand Alone Forms: Patient Portal Discharge page Care Plan Goals: recovery Health Concerns: tylenol overdose Plan of Treatment: when taking medication please take as directed only. can use oxycodone as directed for osteoarthritis pain, home PT Assessment: see above
[2021-08-01 11:06] LABS: Glucose, Whole Blood 258 mg/dL (60-115)
--- NOTE | 2021-08-01 11:46 | P.PNIM_ITS ---
Subjective Subjective Date of Service: 08/01/21 Interval History: cc: vague pain interval history:right shoulder pain Cardiovascular Cardiovascular: Reports no additional cardiovascular complaints Respiratory Respiratory: Reports no additional respiratory complaints Physical Exam Vital Signs: Vital Signs: Last Vital Signs Temp 97.3 F 08/01/21 07:51 Pulse 75 08/01/21 07:51 Resp 14 08/01/21 07:51 BP 117/66 08/01/21 07:51 Pulse Ox 97 08/01/21 07:51 BMI result Body Mass Index 26.1 General: AO X 3, no acute distress Resp:? CTA bilateral, no accessory muscles used CVS: S1,S2,RRR GI: soft, non tender, non distended Neuro:? motor grossly intact, alert Psych: now denying suicidal thought Objective Data Active Medications Atenolol (Atenolol 25 Mg Tablet) 25 mg PO DAILY [facility]; Protocol Last Admin: 08/01/21 08:10 Dose: 25 mg Documented by: KUN Dextrose (Dextrose 50 % 25 Gm/50 Ml Vial) 25 gm IVPUSH Q15M PRN; Protocol PRN Reason: per Hypoglycemia Standing Ord. Enoxaparin Sodium (Enoxaparin Sodium 40 Mg/0.4 Ml Syringe) 40 mg SUBCUT Q24H [facility] Last Admin: 08/01/21 08:10 Dose: 40 mg Documented by: KUN Glucose (Glucose Gel 15 Gm Gel..Gram.) 15 gm PO Q15M PRN; Protocol PRN Reason: per Hypoglycemia Standing Ord. Hydrochlorothiazide (Hydrochlorothiazide 25 Mg Tablet) 25 mg PO DAILY [facility]; Protocol Last Admin: 08/01/21 08:10 Dose: 25 mg Documented by: KUN Insulin Human Lispro (Insulin Lispro 100 Unit/Ml 3 Ml Vial) 0 unit SUBCUT QIDACHS [facility]; Protocol Last Admin: 08/01/21 11:29 Dose: 6 unit Documented by: KUN Lidocaine HCl (Lidocaine 4 % Cream Kit) 1 appl TOPICAL ONCE PRN; Protocol PRN Reason: moderate pain Loperamide HCl (Loperamide Hcl 2 Mg Capsule) 2 mg PO Q6H PRN PRN Reason: Diarrhea Last Admin: 07/31/21 09:30 Dose: 2 mg Documented by: YUIRY Morphine Sulfate (Morphine Sulfate 2 Mg/Ml Cartridge) 2 mg IVPUSH Q4H PRN; Protocol PRN Reason: moderate pain Last Admin: 08/01/21 09:29 Dose: 2 mg Documented by: KUN Oxycodone HCl (Oxycodone Hcl Immed Release 5 Mg Tablet) 5 mg PO Q4H PRN PRN Reason: moderate pain Last Admin: 07/31/21 09:30 Dose: 5 mg Documented by: YURIY Senna (Sennosides 8.6 Mg Tablet) 17.2 mg PO BEDTIME PRN PRN Reason: Constipation Sodium Chloride (0.9 % Sodium Chloride Flush 3 Ml Syringe) 3 ml IVFLUSH QSHIFT FILIPPO Last Admin: 08/01/21 08:10 Dose: 3 ml Documented by: KUN Labs CBC & Chem 7: 07/31/21 05:36 07/31/21 05:36 Labs: Laboratory Results - last 24 hr 07/29/21 07/29/21 07/31/21 05:52 05:52 15:19 POC Glucose 137 H Anti-Mitochondrial Ab NEGATIVE Hepatitis A IgM Ab Nonreactive 07/31/21 08/01/21 08/01/21 19:18 07:56 11:02 POC Glucose 289 H 203 H 258 H Anti-Mitochondrial Ab Hepatitis A IgM Ab Assessment and Plan (1) Unintentional Tylenol overdose: Status: Acute Plan 86F presented with vague complaints of chest, back pain, sob, found to have tylenol toxicity acute hepatitis due to unintentional acetaminophen overdose s/p NAC LFTs significantly improved medical stable for discharge suicidal ideation seen by BHN, felt not to be risk for self harm opiate dependence with withdrawal addication specialist appreciated resolved will continue opiate therapy for osteoarthritis DM inuslin pocs HTN hctz atenolol dvt prophylaxis - lovenox full code reason for continued hospitalization: awaiting safe discharge plan Quality Stroke Does the patient have a stroke diagnosis?: No VTE Prior VTE?: No VTE Risk Level:: Medical - moderate - high VTE Device Contraindication: N/A - Device Ordered VTE Drug Contraindication: Treatment Not Indicated
--- NOTE | 2021-08-01 11:56 | MHC.CM.PN ---
KANIKA received a call back from eKely at [facility] and she reported alternate housing does take some time and pt can go home and will be seen in the home, once dcp finalized KANIKA did leave a message w/Keely [phone] letting her know of plan to send pt home at 1pm tomorrow. Cm received message from pt's dtr/hcp Meera, this cm contacted Meera at 11:35am [phone] who reports she is having a procedure tomorrow morning and will not be able to provide transportation for pt, Meera reports pt is okay to come home w/[facility] involvement and their plan to find new housing for pt. Meera reports pt has been using pain pills for 30 yrs and has a hx of two accidental overdoses, hospitalist aware and pt has been seen by addiction medicine. Cm will follow up w/recovery support nurse. KANIKA also contacted pt's sister Sonya per pt request at 11:25am [phone] who also reported she is unable to provide transportation and does not want to be involved w/pt and reports it's not
[2021-08-01 13:06] LABS: Smooth Muscle Antibody <20 U (<20)
[2021-08-01] MEDS: LORazepam 0.5 MG TABLET PO ×2 (15:21→23:34)
[2021-08-01 16:54] LABS: Glucose, Whole Blood 164 mg/dL (60-115)
[2021-08-01 20:06] LABS: Glucose, Whole Blood 232 mg/dL (60-115)
[2021-08-02] VITALS: PULSE 75
--- NOTE | 2021-08-02 | ECG_ITS ---
Test Reason : ekg Blood Pressure : / mmHG Vent. Rate : 071 BPM Atrial Rate : 000 BPM P-R Int : 000 ms QRS Dur : 130 ms QT Int : 422 ms P-R-T Axes : 000 011 -01 degrees QTc Int : 458 ms Normal sinus rhythm with frequent Premature atrial complexes Right bundle branch block Abnormal ECG When compared with ECG of 30-JUL-2021 09:33, No significant changes seen Vent. rate has decreased BY [address] no longer depressed in Anterior leads Referred By: Isidro Maxwell Electronically Signed By:EARNEST CAMPBELL MD
[2021-08-02 03:41] VITALS: BP 160/85; PULSE 69; RESP 14; TEMP 36.2; O2SAT 96
[2021-08-02] MEDS: Morphine Sulfate 2 MG/ML CARTRIDGE IVPUSH (05:06)
[2021-08-02 07:21] VITALS: BP 155/86; PULSE 96; RESP 18; TEMP 36.1; O2SAT 95
[2021-08-02 07:49] LABS: Glucose, Whole Blood 184 mg/dL (60-115)
[2021-08-02] MEDS: Insulin Lispro 100 UNIT/ML 3 ML VIAL SUBCUT ×2 (08:39→11:39)
[2021-08-02] MEDS: Enoxaparin Sodium 40 MG/0.4 ML SYRINGE SUBCUT (08:39)
[2021-08-02] MEDS: atenoloL 25 MG TABLET PO (08:39)
[2021-08-02] MEDS: hydroCHLOROthiazide 25 MG TABLET PO (08:40)
[2021-08-02] MEDS: oxyCODONE HCl Immed Release 5 MG TABLET PO (08:53)
--- NOTE | 2021-08-02 11:18 | P.DS_ITS ---
DS: Providers Provider Date of Service: 08/02/21 Date of admission: 07/28/21 00:33 Primary care physician: JORDAN Nye Consults: 07/28/21 00:33 Consult to Gastroenterology Routine Consulting Provider: Dean Le Reason for consultation: transaminitis; tylenol toxicity 07/28/21 04:39 Addiction Medicine Routine Consulting Provider: Jahaira Ritter Reason for consultation: ?opiate withdrawal 07/30/21 08:00 BHN [Consult to Crisis] Stat Reason for consultation: SI, medically cleared Consult to Care Team Routine Comment: Reason for consultation: SI DS: Diagnosis Discharge Diagnosis (1) Unintentional Tylenol overdose: Status: Acute (2) Abnormal LFTs (liver function tests): Status: Acute (3) Suicidal ideation: Status: Acute (4) Opioid dependence: Status: Acute DS: Summary Hospital Course Hospital Course: Admission note HPI Chief Complaint:? shortness of breath ?86-year-old female with a past medical history of hypertension, hyperlipidemia, diabetes,? chronic back pain, anxiety, depression presented to the hospital with a chief complaint of shortness of breath.? Patient reported that she has chronic back pain and has been taking oxycodone about 4-5 times per day.? For the past 1 week she has stopped taking Oxycodone as was not given by her daughter.? And has been on Tylenol which she takes 8 pills per day for the past 7-8 days.Reports that over the past 2 days she has been having shortness of breath, chest pain, dyspnea on exertion.? Also complains of diarrhea. Denies any fever chills and cough.?Currently denies any active chest pain at the time of my interview.? Patient reports that she is mostly sedentary at home usually goes down for dinner from her room Patient denies any cough or sputum production.? Denies any urinary symptoms.? hospital course: patient was admitted for acute hepatitis due to an intentional acetaminophen overdose. She was treated during her hospital stay with N-acetylcysteine protocol as her liver function labs returned to normal. She was seen by behavioral health for mentioning suicidal ideation, and felt not to currently be at risk for self-harm, she should follow-up in the community. Patient was treated for opiate dependence with withdrawal, she was seen by customer program specialist and recommended to continue opiates for chronic pain from osteoarthritis. For her diabetes she was continued on insulin, for hypertension she was continued on hydrochlorothiazide and atenolol. Patient is medically stable for discharge home, there is some concern for home safety, therefore, SS will follow up with her at home. evaluated by physical therapy team who recommended home PT. Time Spent with Patient Time attestation: Total time spent providing and/or coordinating discharge services: Discharge coordination time: Greater than 30 minutes Quality: Stroke Does the patient have a stroke diagnosis?: No Physical Exam Vital Signs: Vital Signs: Last Vital Signs Temp 97.0 F 08/02/21 07:21 Pulse 96 08/02/21 07:21 Resp 18 08/02/21 07:21 BP 155/86 H 08/02/21 07:21 Pulse Ox 95 08/02/21 07:21 BMI result Body Mass Index 26.1 Const: Other: Constitutional : Alert, interactive, not in distress Neck : Normal inspection, Supple Cardiovascular : RRR, S1 S2, no lower extremity edema Respiratory : Good bilateral air entry, no crackles, wheezes or rhonchi Gastrointestinal: soft, lax, Normal bowel sounds, Non tender Skin : Warm, Dry Neurological : Alert & oriented x3, No focal deficit DS: Data Data Completed and Pending Labs on day of discharge: Laboratory Results - last 24 hr 07/29/21 08/01/21 08/01/21 05:52 16:17 19:29 POC Glucose 164 H 232 H Mitochondrial AB Titer TNP Anti-Smooth Muscle Ab <20 08/02/21 07:21 POC Glucose 184 H Mitochondrial AB Titer Anti-Smooth Muscle Ab Discharge Plan Discharge Patient Disposition: Home Health Service Discharge Diagnosis: tyelnol overdose Referrals: Physician,Unknown J [Physician] - 1 Week Discharge Medications: New oxycodone 5 mg tablet 5 mg PO BID PRN (Reason: pain (scale score 4-6)) Qty: 30 0RF Continued metformin 500 mg tablet 500 mg PO BID 0RF pravastatin 40 mg tablet 40 mg PO BEDTIME 0RF atenolol 25 mg tablet 25 mg PO DAILY 0RF melatonin 3 mg tablet 3 mg PO BEDTIME PRN (Reason: insomnia) 0RF amitriptyline 50 mg tablet 50 mg PO BEDTIME 0RF perphenazine 4 mg tablet 4 mg PO BID 0RF hydrochlorothiazide 25 mg tablet 25 mg PO DAILY 0RF ketoconazole 2 % cream 1 appl topical DAILY 0RF escitalopram oxalate 20 mg tablet 20 mg PO DAILY 0RF Discharge Orders: Discharge Order (Routine); Ordered 08/02/21 Ordered By: Isidro Maxwell Diet: advance to usual diet Activity on Discharge: As tolerated Stand Alone Forms: Patient Portal Discharge page Care Plan Goals: recovery Health Concerns: tylenol overdose Plan of Treatment: when taking medication please take as directed only. can use oxycodone as directed for osteoarthritis pain, home PT Assessment: see above
--- NOTE | 2021-08-02 11:22 | W.MHC.F2F ---
Service Date Service Date: 08/02/21 Encounter Date of encounter: 08/02/21 Reasons for Services Signs and symptoms assessed: physical deconditioning, unintentional Tylenol overdose Reason for chcf: medication treatment and teach disease management Reason for physical therapy: home safety and mobility and therapeutic exercises Homebound: Leaving the home is medically contraindicated at this time without the asist of a device and/or another person due th the listed conditions above and below. Reason homebound: unsteady gait / fall risk Certification: Based on the above findings, I certify that this patient is confined to the home and needs intermittent chcf care, physical therapy and/or speech therapy, or continues to need occupational therapy. The patient is under my care, and I have initiated the establishment of the plan of care. The patient will be followed by a physician who will periodically review the plan of care.
[2021-08-02 11:30] VITALS: BP 128/65; PULSE 72; RESP 18; TEMP 37.2; O2SAT 95
[2021-08-02] MEDS: 0.9 % Sodium Chloride Flush 3 ML SYRINGE IVFLUSH (11:31)
[2021-08-02 11:52] LABS: Glucose, Whole Blood 312 mg/dL (60-115)
--- NOTE | 2021-08-02 15:34 | MHC.CM.PN ---
nurse returned case inspector note spoke with physician and staff nurse and met with patient and spokewwith shonna patient to be discharged home today per protective services yesterday to shonnaes home and they will follow iniatially will have vna but after numerous vna agencies denial for various reasons spoke with kylee and she now will be d/c home no services , this was informed to patient shonna and sAFF NURSE , DISCHAFGE PLAN HOME QWITH HEEID AND NO SERVICES TRANSPORTATION [facility] ([facility] BUT THEY DO NOT PAY FOR [facility] ) PATIENT WILL BE D/C AT 3;30 WITH [facility] TO TRANS[ORT CONFIRMED THAT HEID WILL BE HOME PCP PATIENTS FAMILY TO FOLLOW IP WITH PRIMARY CARE [facility]IGUEAN FOR POST HOSPITAL DISCHARGE CARE TEAMS HAS MADE REFERRAL FOR MENTAL HEALTH COUNCSELING PROTECTIVE SERVICES CALL TO [facility] TODAY AND INFORM,ED HER THAT WE WWERTE NOT ABLE TO GET VNA AND SHE WAS BEING D/C HOME TODAY AND FOR THEM TO FOLLOW SHE CONFIRMED THAT THEY WOULD
== END 2021-08-02 15:45 | disposition home or self-care (01) | DRG 918 ==
LOC: HO.ED 07-28 00:42 → HO.EDOVER 07-28 00:56 → HO.S3 07-28 14:21
PROVIDERS: Internal Medicine; Admitting Provider Hospitalist; Emergency Provider Emergency Medicine Emergency Medical Services; PCP Physician Assistant Medical; Visit Provider Student in an Organized Health Care Education/Training Program
DX: T39.1X1A Poisoning by 4-Aminophenol derivatives, accidental (unintentional), initial encounter (principal); F11.23 Opioid dependence with withdrawal; I11.0 Hypertensive heart disease with heart failure; E86.0 Dehydration; K71.2 Toxic liver disease with acute hepatitis; F41.9 Anxiety disorder, unspecified; E87.6 Hypokalemia; F32.A Depression, unspecified; M19.90 Unspecified osteoarthritis, unspecified site; G89.29 Other chronic pain; I50.9 Heart failure, unspecified; E11.9 Type 2 diabetes mellitus without complications; Z20.822 Contact with and (suspected) exposure to COVID-19; Z79.899 Other long term (current) drug therapy
CPT/HCPCS: 36415; 71046; 73030; 76700; 80048; 80053; 80076; 80143; 80179; 82077; 82140; 82947; 83605; 83690; 83735; 83880; 84484; 85025; 85027; 85379; 85610; 85730; 86015; 86038; 86039; 86255; 86256; 86704; 86706; 86709; 86803; 87040; 87340; 87635; 93005; 96374; 97162; 99285; 99291; J0132; J1650; J2270

== ENCOUNTER 2021-08-13 16:12 | Emergency (ER) | payer MEDICARE, SELFPAY ==
--- NOTE | ~2021-08-13 | CT_ITS ---
EXAMINATION: CT HEAD WITHOUT CONTRAST CT CERVICAL SPINE WITHOUT CONTRAST CLINICAL INFORMATION: Altered mental status. Fall. COMPARISON: CT head and cervical spine 10/14/2018 TECHNIQUE: Imaging was performed from the skull base to vertex without intravenous administration of contrast. In addition, helical noncontrast CT imaging was acquired through the cervical spine and source images were reviewed along with axial reconstructions and sagittal and coronal MPRs. [This CT examination was performed using dose optimization techniques as appropriate, variously including the following: *Automated exposure control *Adjustment of mA and/or kV according to patient size (this includes techniques or standardized protocols for targeted exams where dose is matched to indication/reason for exam; i.e. extremities or head) *Use of iterative reconstruction technique] DLP: 1008 mGy-cm FINDINGS: HEAD: No intracranial mass, hemorrhage, or midline shift is visualized. There is generalized global volume loss. There is moderate prominence of the ventricles and the sulci . There is mild hypodensity of the periventricular white matter due to chronic small vessel ischemic disease. There are vascular calcifications of the internal carotid arteries bilaterally. No extra-axial collections are identified. The paranasal sinuses and mastoid air cells are well aerated. CERVICAL SPINE: There is no evidence of acute cervical spine fracture. Vertebral bodies remain normal in height. Cervical vertebrae have normal alignment. There is multilevel degenerative spondylosis of the cervical spine with disc height narrowing and endplate spurs and facet joint arthrosis No pre- or paravertebral soft tissue abnormality is identified. Limited assessment of the lung apices is unremarkable. CT/CT cervical spine wo con IMPRESSION: 1. No acute intracranial pathology. 2. No CT evidence of acute cervical spine fracture or traumatic subluxation
--- NOTE | ~2021-08-13 | XR_ITS ---
EXAMINATION: X-RAY RIGHT KNEE X-RAY LEFT KNEE CLINICAL INFORMATION: Knee pain. COMPARISON: Radiographs of both knees dated from 01/19/2017. TECHNIQUE: 4 views of each knee were obtained. FINDINGS: Right knee: No acute fractures or malalignment. Moderate degenerative osteoarthritis in the medial and patellofemoral compartments, slightly progressed since 2017 and manifested by joint space narrowing, osteophytes and subcortical sclerosis. There is also chondrocalcinosis of the medial and lateral compartments. Small joint effusion. Vascular calcifications. Left knee: There is severe medial and patellofemoral degenerative osteoarthritis with less severe moderate osteoarthritis of the lateral compartment. These findings overall similar to slightly progressed since 2017. There is also chondrocalcinosis and a moderate size joint effusion. Scattered vascular calcifications. XR/XR knee RT 4V IMPRESSION: No acute fractures or malalignment. Slightly progressed bilateral degenerative osteoarthritis since 2017 which is severe on the left side and moderate on the right side as above. There is also chondrocalcinosis. There is a moderate size left joint effusion.
--- NOTE | ~2021-08-13 | XR_ITS ---
EXAMINATION: X-RAY RIGHT KNEE X-RAY LEFT KNEE CLINICAL INFORMATION: Knee pain. COMPARISON: Radiographs of both knees dated from 01/19/2017. TECHNIQUE: 4 views of each knee were obtained. FINDINGS: Right knee: No acute fractures or malalignment. Moderate degenerative osteoarthritis in the medial and patellofemoral compartments, slightly progressed since 2017 and manifested by joint space narrowing, osteophytes and subcortical sclerosis. There is also chondrocalcinosis of the medial and lateral compartments. Small joint effusion. Vascular calcifications. Left knee: There is severe medial and patellofemoral degenerative osteoarthritis with less severe moderate osteoarthritis of the lateral compartment. These findings overall similar to slightly progressed since 2017. There is also chondrocalcinosis and a moderate size joint effusion. Scattered vascular calcifications. XR/XR knee LT 4V IMPRESSION: No acute fractures or malalignment. Slightly progressed bilateral degenerative osteoarthritis since 2017 which is severe on the left side and moderate on the right side as above. There is also chondrocalcinosis. There is a moderate size left joint effusion.
--- NOTE | ~2021-08-13 | CT_ITS ---
EXAM: CT scan of the chest, abdomen, and pelvis. INDICATION: Diffuse pain after fall COMPARISON: CT chest, abdomen and pelvis 10/14/2018 TECHNIQUE: Multidetector helical imaging of the chest, abdomen, and pelvis was obtained from the thoracic inlet through the pubic symphysis. Coronal and sagittal reformatted images that were obtained were also reviewed. DLP: 1176 mGy-cm FINDINGS: CHEST: Central airways are patent. Lungs are adequately aerated. There is mild dependent atelectasis. No lobar consolidation. No pleural effusion or pneumothorax. No suspicious pulmonary nodules. The heart is normal in size. Coronary artery and mitral annulus calcifications noted. Normal caliber thoracic aorta. No gross mediastinal lymphadenopathy. No enlarged axillary lymph nodes. ABDOMEN/PELVIS: The liver and gallbladder are normal in appearance. Mild fatty atrophy of the pancreas. The spleen and adrenal glands are unremarkable. No renal calculi or hydronephrosis of either kidney. Normal caliber loops of small and large bowel. Mild colonic diverticulosis without CT evidence to suggest active diverticulitis. Mild colonic stool burden. Normal caliber abdominal aorta which demonstrates severe atherosclerotic disease. The bladder is well-distended and normal in appearance. Uterus is either surgically absent or severely atrophic. No gross free pelvic fluid. No inguinal lymphadenopathy. OSSEOUS STRUCTURES Diffuse osteopenia. Moderate to severe degenerative changes of the spine. Similar compression deformities of T4, T12 and L1. Prominent degenerative changes of the left shoulder. CT/CT abdomen pelvis wo con IMPRESSION: No CT evidence for acute abnormality within the chest, abdomen or pelvis. This CT examination was performed using dose optimization techniques as appropriate, variously including the following: *Automated exposure control *Adjustment of mA and/or kV according to patient size (this includes techniques or standardized protocols for targeted exams where dose is matched to indication/reason for exam; i.e. extremities or head) *Use of iterative reconstruction technique
[2021-08-13 16:23] VITALS: BP 126/76; BP 151/75; PULSE 83; PULSE 88; RESP 22; TEMP 36.4; O2SAT 95; O2SAT 96; BMI 19.1
--- NOTE | 2021-08-13 16:35 | PC.NURSE ---
pt rousable to voice, following commands, altered mental, unsure of baseline. pt had unwitnessed fall at home, unknown headstrike, unclear how long pt was down, pt c/o neck and knee pain w EMS - c-collar placed at scene, no blood thinners. family reports decreased po intake. pt lives w in apt w , family live in apt below. typically ambulates independently with cane.
--- NOTE | 2021-08-13 16:44 | ECG_ITS ---
Test Reason : fall Blood Pressure : / mmHG Vent. Rate : 084 BPM Atrial Rate : 084 BPM P-R Int : 294 ms QRS Dur : 170 ms QT Int : 452 ms P-R-T Axes : 100 002 -15 degrees QTc Int : 534 ms Sinus rhythm with 1st degree A-V block Right bundle branch block Abnormal ECG When compared with ECG of 02-AUG-2021 11:37, Premature atrial complexes are no longer Present NV interval has increased QRS duration has increased QT has lengthened Referred By: Eugene Aguila Electronically Signed By:Conrado Wilder
--- NOTE | 2021-08-13 16:55 | PC.NURSE ---
pt to CT
--- NOTE | 2021-08-13 17:01 | ED.AMS ---
HPI - Altered Mental Status General Chief Complaint: Fall Stated Complaint: AMS, WEAKNESS Time Seen by Provider: 08/13/21 16:43 Source: EMS, RN notes reviewed and old records reviewed Mode of arrival: EMS Limitations: altered mental status History of Present Illness HPI narrative: 86-year-old female brought in by ambulance from home with concerns of an unwitnessed fall according to family patient has been altered since the fall. It is unclear when exactly the fall occurred however it sounds like the fall occurred today. Patient is alert to person and place not situation. Not answering questions appropriately. To the best of her knowledge patient is not on blood thinners. MD complaint: altered mental status and confusion Onset (ago): day(s) (1) Severity: moderate Associated symptoms: denies other symptoms Related Data Home Medications Medication Instructions Recorded Confirmed ketoconazole 2 % topical cream 1 appl TOPICAL DAILY 07/28/21 07/28/21 melatonin 3 mg tablet 3 mg PO BEDTIME PRN 07/28/21 07/28/21 perphenazine 4 mg tablet 4 mg PO BID 07/28/21 07/28/21 Previous Rx's Medication Instructions Recorded oxycodone 5 mg tablet 5 mg PO BID PRN #30 tab 08/01/21 amitriptyline 50 mg tablet 50 mg PO BEDTIME 30 Days #0 tab 08/03/21 atenolol 25 mg tablet 25 mg PO DAILY 30 Days #30 tab 08/03/21 escitalopram oxalate 20 mg tablet 20 mg PO DAILY 30 Days #0 tab 08/03/21 hydrochlorothiazide 25 mg tablet 25 mg PO DAILY 30 Days #30 tab 08/03/21 metformin 500 mg tablet 500 mg PO BID 30 Days #60 tab 08/03/21 pravastatin 40 mg tablet 40 mg PO BEDTIME 30 Days #30 tab 08/03/21 cefuroxime axetil 250 mg tablet 250 mg PO BID 7 Days #14 tab 08/14/21 Allergies Allergy/AdvReac Type Severity Reaction Status Date / Time No Known Allergies Allergy Unverified 02/10/20 14:39 Review of Systems Review of Systems: Yes Unobtainable due to mental status PMFSH Past Medical History Attestation statement: The following information was validated with the patient. Source: old records reviewed and nursing notes reviewed Medical History Osteoarthritis Social History Social History Household Members: Spouse and Children Housing: House Do you presently have visiting nurse or other home services: No Patient Tobacco Use Status: Never used Tobacco Advance Directives: Yes Advance Directives on File: Yes Advance Directives Date on File: 07/28/21 service: No Current occupational status: disabled Physical Exam ED Vital Signs: Vital Signs - 24 hr 08/13/21 16:23 08/13/21 20:00 08/13/21 22:00 Temperature 97.6 F 98.7 F 98.1 F Pulse Rate 83 89 83 Respiratory Rate 22 H 18 18 Blood Pressure 151/75 H 143/87 H 115/97 H Pulse Oximetry 95 96 96 08/14/21 00:12 Temperature Pulse Rate 86 Respiratory Rate 19 Blood Pressure 120/93 H Pulse Oximetry 96 BMI result Body Mass Index 19.1 Vital signs stable Appearance: Alert.? Oriented X3.? No acute distress.? Head: Normocephalic, atraumatic, no step-offs or deformities Eyes: Pupils equal, round and reactive to light.? ENT: Pharynx normal.? Neck: Normal inspection.? Neck supple.? CVS: Normal heart rate and rhythm.? Pulses normal.?+ pain with palpation to right side of chest. Respiratory: No respiratory distress.? Breath sounds normal.? Abdomen: Soft and nontender.? Skin: Skin warm and dry.? Normal skin color.? Normal skin turgor.? Extremities: No lower extremity edema.? No calf ttp. 5/5 strength to bilateral upper and lower extremities she reports pain with range of motion of bilateral knees some abrasions noted to bilateral knees. Back: No midline tenderness, no C-spine tenderness, full range of motion, no CVA tenderness bilaterally Neuro: Oriented X 3.? No motor deficit.? No sensory deficit. CN 2-12 intact Course Reevaluation(s) Reevaluation #1: Patient noted to have a slight leukocytosis, a baseline normocytic anemia no acute electrolyte abnormalities that require intervention. Lactic acid normal. CK slightly elevated. Low suspicion for rhabdo not meeting parameters to diagnose rhabdo. Troponin 11.4 will be repeated at 23:00. Although patient does have a leukocytosis all vitals are stable, patient really has no complaints that she is verbalizing to me. I will hold on antibiotics until able to identify a source. I have tried to contact family multiple times with no answer. Time: 22:04 Reevaluation #2: Moderate-sized left knee effusion. Will treat for UTI she has positive nitrates. CT of the head and cervical spine with no in intracranial pathology. No cervical spine fractures or traumatic subluxations. CT of the abdomen, pelvis and chest with no acute abnormalities. As noted previously patient is noted to have a moderate left knee effusion an Chip wrap has been applied. At this time patient will be discharged home. She will be treated for UTI. An Chip wrap will be applied. She was advised to follow-up with her PCP. I gave her strict return precautions and advised her to return with new or worsening symptoms. At this time I feel comfortable discharge home Time: 23:52 MDM - Altered Mental Status MDM Narrative Medical decision making narrative: 1821 86 yo f presents w/ unwhitnessed fall unure if loc or headstrike. Family reprots to EMS patient has been altered. PE with patient alert to person and place not time or situation. Moving all extremities. Bilateral pupils equal reactive to light bilaterally. Lungs clear. Regular rate and rhythm. Abdomen soft nontender nondistended. She does report pain to palpation to the right side of the ribs. Plan at this time is labs, blood cultures, lactic, urine, straight cath. Medical Records Attestation: I reviewed the patient's medical records. Lab Data Attestation: I reviewed the patient's lab results. Result diagrams: 08/13/21 20:01 08/13/21 19:19 Labs: Lab Results 08/13/21 08/13/21 08/13/21 Range/Units 19:19 19:19 20:01 WBC 13.3 H (4.8-10.8) X10*3/uL RBC 3.71 L (4.20-5.50) X10*6/uL Hgb 11.9 L (12.0-16.0) g/dl Hct 35.6 L (37.0-47.0) % MCV 96.0 (80.0-98.0) fL MCH 32.1 (27.0-33.0) pg MCHC 33.4 (31.0-35.0) g/dl RDW 13.8 (11.0-16.0) % Plt Count 237 D (160-400) X10*3/uL MPV 8.5 L (9.4-12.3) fL Immature Gran % (Auto) 0.3 (0.0-0.4) % Neut % (Auto) 83.4 H (45-73) % Lymph % (Auto) 11.1 L (20-40) % [place] % (Auto) 4.7 (2-11) % Eos % (Auto) 0.3 (0-4) % Baso % (Auto) 0.2 (0-2) % Lymph # (Auto) 1.5 (1.2-4.9) X10*3/uL [place] # (Auto) 0.6 (0.1-1.2) X10*3/uL Eos # (Auto) 0.0 (0.0-0.4) X10*3/uL Baso # (Auto) 0.0 (0.0-0.2) X10*3/uL Abs Immat Gran (auto) 0.04 H (0.00-0.03) X10*3/uL Absolute Neuts (auto) 11.1 H (2.0-8.3) x10*3/uL Absolute Nucleated RBC 0.000 (0.0-0.012) X10*3/uL Nucleated RBC % (auto) 0.0 (0.0-0.2) /100WBC Sodium 134 L (135-145) mmol/L Potassium 3.7 (3.3-5.1) mmol/L Chloride 96 (96-108) mmol/L Carbon Dioxide 22 (22-29) mmol/L Anion Gap 20 (12-20) BUN 20 H D (9-16) mg/dL Creatinine 0.92 (0.5-1.4) mg/dL Estim Creat Clear Calc 30.3 Estimated GFR 58 Random Glucose 116 H (60-115) mg/dL Lactic Acid (0.5-2.0) mmol/L Calcium 9.4 (8.4-10.2) mg/dL Magnesium 1.6 (1.6-2.6) mg/dL Total Bilirubin 0.8 (0.0-1.0) mg/dL AST 28 D (5-31) U/L ALT 32 H (0-31) U/L Alkaline Phosphatase 118 H (39-117) U/L Total Creatine Kinase 188 H (26-140) U/L Troponin I High Sens (<3.5-17.0) ng/L Total Protein 6.8 D (6.5-8.0) g/dL Albumin 4.0 D (3.5-5.0) g/dL Urine Color Urine Appearance Urine pH (5.0-8.0) Ur Specific [place] (1.005-1.025) Urine Protein (NEG-TRACE) MG/DL Urine Glucose (UA) (NEG) MG/DL Urine Ketones (NEG) MG/DL Urine Blood (NEG) Urine Nitrite (NEG) Ur Leukocyte Esterase (NEG) Urine RBC (0) /HPF Urine WBC (0-4) /HPF Ur Squamous Epith Cells /LPF Urine Bacteria /LPF Salicylates < 5.0 L (15-30) mg/dL Urine Opiates Screen (Not Detect) Urine Fentanyl Screen (Not Detect) Acetaminophen 2 (<30) mcg/mL Ur Barbiturates Screen (Not Detect) Ur Phencyclidine Scrn (Not Detect) Ur Amphetamines Screen (Not Detect) U Benzodiazepines Scrn (Not Detect) Urine Cocaine Screen (Not Detect) U Marijuana (THC) Screen (Not Detect) Ethyl Alcohol < 10 mg/dL COVID-19 (BRENDA) (Negative) COVID-19 Clin Com 08/13/21 08/13/21 08/13/21 Range/Units 20:01 20:01 22:49 WBC (4.8-10.8) X10*3/uL RBC (4.20-5.50) X10*6/uL Hgb (12.0-16.0) g/dl Hct (37.0-47.0) % MCV (80.0-98.0) fL MCH (27.0-33.0) pg MCHC (31.0-35.0) g/dl RDW (11.0-16.0) % Plt Count (160-400) X10*3/uL MPV (9.4-12.3) fL Immature Gran % (Auto) (0.0-0.4) % Neut % (Auto) (45-73) % Lymph % (Auto) (20-40) % [place] % (Auto) (2-11) % Eos % (Auto) (0-4) % Baso % (Auto) (0-2) % Lymph # (Auto) (1.2-4.9) X10*3/uL [place] # (Auto) (0.1-1.2) X10*3/uL Eos # (Auto) (0.0-0.4) X10*3/uL Baso # (Auto) (0.0-0.2) X10*3/uL Abs Immat Gran (auto) (0.00-0.03) X10*3/uL Absolute Neuts (auto) (2.0-8.3) x10*3/uL Absolute Nucleated RBC (0.0-0.012) X10*3/uL Nucleated RBC % (auto) (0.0-0.2) /100WBC Sodium (135-145) mmol/L Potassium (3.3-5.1) mmol/L Chloride (96-108) mmol/L Carbon Dioxide (22-29) mmol/L Anion Gap (12-20) BUN (9-16) mg/dL Creatinine (0.5-1.4) mg/dL Estim Creat Clear Calc Estimated GFR Random Glucose (60-115) mg/dL Lactic Acid 2.0 (0.5-2.0) mmol/L Calcium (8.4-10.2) mg/dL Magnesium (1.6-2.6) mg/dL Total Bilirubin (0.0-1.0) mg/dL AST (5-31) U/L ALT (0-31) U/L Alkaline Phosphatase (39-117) U/L Total Creatine Kinase (26-140) U/L Troponin I High Sens 11.4 D (<3.5-17.0) ng/L Total Protein (6.5-8.0) g/dL Albumin (3.5-5.0) g/dL Urine Color YELLOW Urine Appearance CLEAR Urine pH 6.5 (5.0-8.0) Ur Specific [place] <= 1.005 (1.005-1.025) Urine Protein NEG (NEG-TRACE) MG/DL Urine Glucose (UA) NEG (NEG) MG/DL Urine Ketones NEG (NEG) MG/DL Urine Blood NEG (NEG) Urine Nitrite POS H (NEG) Ur Leukocyte Esterase NEG (NEG) Urine RBC 0-2 (0) /HPF Urine WBC 5-9 H (0-4) /HPF Ur Squamous Epith Cells 1+ /LPF Urine Bacteria 4+ /LPF Salicylates (15-30) mg/dL Urine Opiates Screen (Not Detect) Urine Fentanyl Screen (Not Detect) Acetaminophen (<30) mcg/mL Ur Barbiturates Screen (Not Detect) Ur Phencyclidine Scrn (Not Detect) Ur Amphetamines Screen (Not Detect) U Benzodiazepines Scrn (Not Detect) Urine Cocaine Screen (Not Detect) U Marijuana (THC) Screen (Not Detect) Ethyl Alcohol mg/dL COVID-19 (BRENDA) (Negative) COVID-19 Clin Com 08/13/21 08/13/21 08/13/21 Range/Units 22:51 23:08 Unknown WBC (4.8-10.8) X10*3/uL RBC (4.20-5.50) X10*6/uL Hgb (12.0-16.0) g/dl Hct (37.0-47.0) % MCV (80.0-98.0) fL MCH (27.0-33.0) pg MCHC (31.0-35.0) g/dl RDW (11.0-16.0) % Plt Count (160-400) X10*3/uL MPV (9.4-12.3) fL Immature Gran % (Auto) (0.0-0.4) % Neut % (Auto) (45-73) % Lymph % (Auto) (20-40) % [place] % (Auto) (2-11) % Eos % (Auto) (0-4) % Baso % (Auto) (0-2) % Lymph # (Auto) (1.2-4.9) X10*3/uL [place] # (Auto) (0.1-1.2) X10*3/uL Eos # (Auto) (0.0-0.4) X10*3/uL Baso # (Auto) (0.0-0.2) X10*3/uL Abs Immat Gran (auto) (0.00-0.03) X10*3/uL Absolute Neuts (auto) (2.0-8.3) x10*3/uL Absolute Nucleated RBC (0.0-0.012) X10*3/uL Nucleated RBC % (auto) (0.0-0.2) /100WBC Sodium (135-145) mmol/L Potassium (3.3-5.1) mmol/L Chloride (96-108) mmol/L Carbon Dioxide (22-29) mmol/L Anion Gap (12-20) BUN (9-16) mg/dL Creatinine (0.5-1.4) mg/dL Estim Creat Clear Calc Estimated GFR Random Glucose (60-115) mg/dL Lactic Acid (0.5-2.0) mmol/L Calcium (8.4-10.2) mg/dL Magnesium (1.6-2.6) mg/dL Total Bilirubin (0.0-1.0) mg/dL AST (5-31) U/L ALT (0-31) U/L Alkaline Phosphatase (39-117) U/L Total Creatine Kinase (26-140) U/L Troponin I High Sens 9.7 (<3.5-17.0) ng/L Total Protein (6.5-8.0) g/dL Albumin (3.5-5.0) g/dL Urine Color Urine Appearance Urine pH (5.0-8.0) Ur Specific [place] (1.005-1.025) Urine Protein (NEG-TRACE) MG/DL Urine Glucose (UA) (NEG) MG/DL Urine Ketones (NEG) MG/DL Urine Blood (NEG) Urine Nitrite (NEG) Ur Leukocyte Esterase (NEG) Urine RBC (0) /HPF Urine WBC (0-4) /HPF Ur Squamous Epith Cells /LPF Urine Bacteria /LPF Salicylates (15-30) mg/dL Urine Opiates Screen POSITIVE H (Not Detect) Urine Fentanyl Screen Not Detected (Not Detect) Acetaminophen (<30) mcg/mL Ur Barbiturates Screen Not Detected (Not Detect) Ur Phencyclidine Scrn Not Detected (Not Detect) Ur Amphetamines Screen Not Detected (Not Detect) U Benzodiazepines Scrn Not Detected (Not Detect) Urine Cocaine Screen Not Detected (Not Detect) U Marijuana (THC) Screen Not Detected (Not Detect) Ethyl Alcohol mg/dL COVID-19 (BRENDA) Negative (Negative) COVID-19 Clin Com See Note Critical Care Time Critical Care Time Critical Care Time: No Discharge Plan Discharge Clinical Impression: Effusion of left knee, Acute UTI, Weakness, Physical deconditioning Patient Disposition: Home, Self-Care Instructions: Weakness (ED), Swollen Joint (ED), Urinary Tract Infection in Older Adults (ED) Additional Instructions: Take your medications as prescribed. If you were prescribed antibiotics today, it is important that you take your medication to their entirety, do not skip any doses, do not finish them early. Follow-up with your primary care provider this week. Return to the emergency department with new or worsening symptoms. Such as fevers, chills, chest pain, shortness of breath, nausea, vomiting, dizziness, headache, vision changes, lethargy In case of emergency call [address] scan showed no acute findings. X-rays of bilateral knees with no acute findings other than a moderate left knee effusion. Were noted to have a slight UTI. Your being treated with antibiotics for that. Prescriptions: New cefuroxime axetil 250 mg tablet 250 mg PO BID 7 Days Qty: 14 0RF No Action melatonin 3 mg tablet 3 mg PO BEDTIME PRN (Reason: insomnia) 0RF perphenazine 4 mg tablet 4 mg PO BID 0RF ketoconazole 2 % cream 1 appl topical DAILY 0RF oxycodone 5 mg tablet 5 mg PO BID PRN (Reason: pain (scale score 4-6)) Qty: 30 0RF metformin 500 mg tablet 500 mg PO BID 30 Days Qty: 60 0RF pravastatin 40 mg tablet 40 mg PO BEDTIME 30 Days Qty: 30 0RF atenolol 25 mg tablet 25 mg PO DAILY 30 Days Qty: 30 0RF amitriptyline 50 mg tablet 50 mg PO BEDTIME 30 Days Qty: 0 0RF hydrochlorothiazide 25 mg tablet 25 mg PO DAILY 30 Days Qty: 30 0RF escitalopram oxalate 20 mg tablet 20 mg PO DAILY 30 Days Qty: 0 0RF Referrals: Navin Mcgill PA [Primary Care Provider] - 2 days
--- NOTE | 2021-08-13 18:13 | PC.NURSE ---
there has been a delay obtaining labs, pt difficult stick, went to ct scan between attempting access, provider is aware that patient is difficult stick, tech is going to attempt to get labs, will continue to monitor.
[2021-08-13 19:36] LABS: Ethanol < 10 mg/dL
--- NOTE | 2021-08-13 19:51 | PC.NURSE ---
C-collar removed per provider order. CT scan results indicate no fractures in c-spine.
--- NOTE | 2021-08-13 19:55 | PC.NURSE ---
phlebotomy is to do the lab draw
[2021-08-13 20:00] VITALS: BP 143/87; PULSE 89; RESP 18; TEMP 37.1; O2SAT 96
[2021-08-13 20:01] LABS: Acetaminophen LAB 2 mcg/mL (<30); Alanine Aminotransferase 32 U/L (0-31); Alkaline Phosphatase 118 U/L (39-117); Anion Gap 20 (12-20); Aspartate Amino Transferase 28 U/L (5-31); Bilirubin Total 0.8 mg/dL (0.0-1.0); Blood Urea Nitrogen 20 mg/dL (9-16); Calcium 9.4 mg/dL (8.4-10.2); Carbon Dioxide 22 mmol/L (22-29); Chloride 96 mmol/L (96-108); Creatinine Clr Calc Pharmacy 30.3; Estimated Glomerular Filt Rate 58; Glucose Random 116 mg/dL (60-115); Magnesium 1.6 mg/dL (1.6-2.6); Potassium 3.7 mmol/L (3.3-5.1); Salicylate < 5.0 mg/dL (15-30); Sodium 134 mmol/L (135-145); Total Protein 6.8 g/dL (6.5-8.0)
[2021-08-13 20:23] LABS: MANUAL DIFF FLAG NO
[2021-08-13 20:25] LABS: Basophils Percent Auto 0.2 % (0-2); Eosinophils Percent Auto 0.3 % (0-4); Hematocrit 35.6 % (37.0-47.0); Hemoglobin 11.9 g/dl (12.0-16.0); Imm Gran Abs Auto 0.04 X10*3/uL (0.00-0.03); Imm Gran Pct Auto 0.3 % (0.0-0.4); Lymphocytes Absolute Auto 1.5 X10*3/uL (1.2-4.9); Lymphocytes Percent Auto 11.1 % (20-40); Mean Corpuscular HGB Conc 33.4 g/dl (31.0-35.0); Mean Corpuscular Hemoglobin 32.1 pg (27.0-33.0); Mean Platelet Volume 8.5 fL (9.4-12.3); Monocytes Absolute Auto 0.6 X10*3/uL (0.1-1.2); Monocytes Percent Auto 4.7 % (2-11); Neutrophils Absolute Auto 11.1 x10*3/uL (2.0-8.3); Neutrophils Percent Auto 83.4 % (45-73); Platelet Count 237 X10*3/uL (160-400); Red Blood Count 3.71 X10*6/uL (4.20-5.50); Red Cell Distribution Width 13.8 % (11.0-16.0); White Blood Count 13.3 X10*3/uL (4.8-10.8)
[2021-08-13 20:45] LABS: Troponin-I High Sensitivity 11.4 ng/L (<3.5-17.0)
[2021-08-13] MEDS: Morphine Sulfate 2 MG/ML CARTRIDGE IVPUSH (20:55)
--- NOTE | 2021-08-13 20:55 | PC.NURSE ---
patient alert & ox2, pt insistent that she has been laying in the ED since early this morning, pt was told she just came to the ed a few hours ago and she got angry stating this nurse was lying, campaign analyst applied, vss, pt medicated for pain will continue to monitor.
[2021-08-13 22:00] VITALS: BP 115/97; PULSE 83; RESP 18; TEMP 36.7; O2SAT 96
--- NOTE | 2021-08-13 22:12 | PC.NURSE ---
patient a&ox3, vss, valuation consultant intact, pt states she has 8/10 pain but is comfortable with that pain level, call pickett within reach, will continue to monitor.
--- NOTE | 2021-08-13 22:59 | PC.NURSE ---
patient straight cath'd per order, pt was incontinent of urine prior to straight cath- complete bed change performed, will continue to monitor.
[2021-08-13 23:06] LABS: Appearance Urine CLEAR; Color Urine YELLOW; Glucose Urine UA NEG (NEG); Leukocyte Esterase Urine NEG (NEG); Nitrite Urine POS (NEG); PH 6.5 (5.0-8.0); Specific Gravity - Urine <= 1.005 (1.005-1.025); UACC Culture Trigger YES; Urine Blood NEG (NEG); Urine Ketones NEG (NEG); Urine Protein NEG (NEG-TRACE)
[2021-08-13 23:13] LABS: COVID-19 Test Negative (Negative); IDNOW Serial# 55D5AD1C
[2021-08-13 23:15] LABS: Bacteria Urine 4+ /LPF; RBC Urine 0-2 /HPF (0); Squamous Epithelial Cell Urine 1+ /LPF
[2021-08-13 23:20] LABS: Amphetamine Screen Urine Not Detected (Not Detect); Barbiturates, Urine Not Detected (Not Detect); Benzodiazepines Screen Urine Not Detected (Not Detect); Cannabinoid Screen Urine Not Detected (Not Detect); Cocaine Screen Urine Not Detected (Not Detect); Fentanyl, urine Not Detected (Not Detect); Opiate Screen Urine POSITIVE (Not Detect); Phencyclidine Screen Urine Not Detected (Not Detect)
[2021-08-13 23:39] LABS: Troponin-I High Sensitivity 9.7 ng/L (<3.5-17.0)
[2021-08-14 00:12] VITALS: BP 120/93; PULSE 86; RESP 19; O2SAT 96
[2021-08-14] MEDS: cefTRIAXone sodium 1 GM in 0.9 % Sodium Chloride 50 ML IV (00:21)
--- NOTE | 2021-08-14 00:27 | PC.NURSE ---
pt a&o, no sob or chest pain at this time. pt eating crackers at this time. Pt medicated per Jul. No sign of distress at this time. Will continue to monitor.
[2021-08-14] MEDS: Morphine Sulfate 2 MG/ML CARTRIDGE IVPUSH (01:51)
--- NOTE | 2021-08-14 01:54 | PC.NURSE ---
Pt ready for discharge. Family not answering the phone. Per provider, to hold pt until able to contact family to assure family is home.
[2021-08-14 05:50] VITALS: BP 149/78; PULSE 79; RESP 14; O2SAT 98
[2021-08-14 07:22] VITALS: BP 149/78; PULSE 79; O2SAT 98
[2021-08-14] MEDS: oxyCODONE HCl Immed Release 5 MG TABLET PO ×2 (08:11→15:19)
[2021-08-14] MEDS: Acetaminophen 325 MG TABLET 650 MG PO (09:20)
--- NOTE | 2021-08-14 11:12 | MHC.CM.ED ---
Received case management consult overnight. Patient came to ER due to AMS. Patient found to have an UTI. Physical therapy eval completed. Short term rehab is recommended. Met with patient in regards to discharge planning. Patient lives with her and daughter and is legally blind. Patient had no services prior to coming to the ER. HCP on file states patient was unable to sign but doesn't explain why. New HCP completed, signed and witnessed. Original given to patient. Copy placed in chart. Patient received 3 Pfizer vaccines. List of facilities contacted with patient's insurance provided from [facility]. Patient has been to [facility] in the past and doesn't want to return. [facility] is first choice. [facility] is able to offer a bed and will try to obtain insurance auth. Continue to monitor for d/c needs.
--- NOTE | 2021-08-14 11:14 | PHA.MEDREC ---
Pharmacy Consult ? Medication Reconciliation Pharmacy has completed the medication reconciliation. Patient reports she does not take amtriptyline or melatonin. She is unsure about perphenazine however it was just filled 08.07.21 therefore I kept on the home medication list. Nora Stroud, Jose AngelD
--- NOTE | 2021-08-14 12:59 | MHC.CM.ED ---
Insurance auth has been obtained. Patient can leave for [facility] at 6pm. IESHA DANIELSON booked. Med nec with chart. Patient, Kellen CARBALLO and Manju ORTEGA aware. Continue to monitor for d/c needs.
[2021-08-14 14:00] VITALS: BP 127/89; PULSE 95; RESP 18; O2SAT 100
--- NOTE | 2021-08-14 14:33 | MHC.CM.ED ---
Addendum entered by Carmen Wadsworth 08/14/21 16:13: In the process of trying to obtain home VNA for patient. Referral broadcasted in [employer]. [facility] and OT. F2F already uploaded into [employer]. Original Note: Received notification that patient wants to go home not to rehab. [facility] was booked for [facility]. Now booked for patient to return to her home in [place]. Attempted to patient's daughter, Meera aware via telephone at [phone]. Left message explaining d/c plan. Attempted to speak to via telephone at [phone]. Voicemail is full. Patient, Kellen CARBALLO and Martha ORTEGA aware. There is an open [facility] investigation. Patient's clinical case manager, Xenia Friend, made aware via telephone at [phone].
[2021-08-14] MEDS: atenoloL 25 MG TABLET PO (15:13)
[2021-08-14] MEDS: metFORMIN HCl 500 MG TABLET PO (15:13)
[2021-08-14] MEDS: Escitalopram Oxalate 20 MG TABLET PO (15:13)
[2021-08-14 15:28] VITALS: BP 138/69; PULSE 88; RESP 16; TEMP 36.8; O2SAT 97
== END 2021-08-14 17:43 | disposition home or self-care (01) ==
PROVIDERS: Physician Assistant; Emergency Provider Internal Medicine; PCP Physician Assistant Medical
DX: N39.0 Urinary tract infection, site not specified (principal); M25.462 Effusion, left knee; R53.1 Weakness; R53.81 Other malaise; R07.9 Chest pain, unspecified; S80.212A Abrasion, left knee, initial encounter; S80.211A Abrasion, right knee, initial encounter; X58.XXXA Exposure to other specified factors, initial encounter; Y93.9 Activity, unspecified; Y92.9 Unspecified place or not applicable; Y99.9 Unspecified external cause status; Z20.822 Contact with and (suspected) exposure to COVID-19
CPT/HCPCS: 70450; 71250; 72125; 73564; 74176; 80053; 80143; 80179; 80307; 81001; 81003; 82077; 82550; 83605; 83735; 84484; 85025; 87040; 87086; 87088; 87186; 87635; 93005; 96365; 96375; 96376; 97162; 99285; J0696; J2270

== ENCOUNTER 2021-08-15 09:48 | Emergency (ER) | payer MEDICARE, SELFPAY ==
--- NOTE | ~2021-08-15 | XR_ITS ---
EXAMINATION: CHEST AND RIGHT RIBS. CLINICAL INFORMATION: Fall and left rib pain COMPARISON: None TECHNIQUE: Chest 2 views and right rib 3 views FINDINGS: Chest PA and lateral views reveal both lungs to be expanded and clear. The ill-defined density right lung apex likely calcification or granuloma in the right posterior third interspace The heart size and pulmonary vascularity is normal. No gross bony abnormality seen. Multiple views of right ribs reveal nondisplaced fracture right anterolateral ninth and likely 10th ribs. XR/XR ribs RT min 3V w CXR1V IMPRESSION: Unremarkable chest exam
--- NOTE | ~2021-08-15 | XR_ITS ---
EXAMINATION: CHEST AND RIGHT RIBS. CLINICAL INFORMATION: Fall and left rib pain COMPARISON: None TECHNIQUE: Chest 2 views and right rib 3 views FINDINGS: Chest PA and lateral views reveal both lungs to be expanded and clear. The ill-defined density right lung apex likely calcification or granuloma in the right posterior third interspace The heart size and pulmonary vascularity is normal. No gross bony abnormality seen. Multiple views of right ribs reveal nondisplaced fracture right anterolateral ninth and likely 10th ribs. XR/XR chest 1V IMPRESSION: Unremarkable chest exam
--- NOTE | 2021-08-15 09:51 | ED.FALL ---
HPI - Fall General Chief Complaint: Fall Stated Complaint: FALL,DIZZY,+COLLAR,-LOC,-THINNERS Time Seen by Provider: 08/15/21 09:50 Source: EMS Mode of arrival: EMS History of Present Illness HPI Narrative: Dizziness prior to fall, fell yesterday and was seen in the ED. According to EMS she has right upper abdominal pain. Sugar was elevated 323. Patient states she slipped into the wall and did not hit her head. she could not get herself up. Daughter got her up this morning. MD complaint: fall Onset (ago): hour(s) Fall from: standing Fall witnessed: no Place fall occurred: home Loss of consciousness: none Prolonged down time: no Symptoms prior to fall: lightheadedness Related Data Home Medications Medication Instructions Recorded Confirmed perphenazine 4 mg tablet 4 mg PO BID 07/28/21 08/14/21 acetaminophen 325 mg tablet 650 mg PO Q4H PRN 08/14/21 08/14/21 Previous Rx's Medication Instructions Recorded oxycodone 5 mg tablet 5 mg PO BID PRN #30 tab 08/01/21 atenolol 25 mg tablet 25 mg PO DAILY 30 Days #30 tab 08/03/21 escitalopram oxalate 20 mg tablet 20 mg PO DAILY 30 Days #0 tab 08/03/21 hydrochlorothiazide 25 mg tablet 25 mg PO DAILY 30 Days #30 tab 08/03/21 metformin 500 mg tablet 500 mg PO BID 30 Days #60 tab 08/03/21 pravastatin 40 mg tablet 40 mg PO BEDTIME 30 Days #30 tab 08/03/21 cefuroxime axetil 250 mg tablet 250 mg PO BID 7 Days #14 tab 08/14/21 Allergies Allergy/AdvReac Type Severity Reaction Status Date / Time No Known Allergies Allergy Unverified 02/10/20 14:39 Review of Systems Constitutional: Constitutional: Reports no additional constitutional complaints Eyes: Eyes: Reports no additional eye complaints ENT: Denies dizziness Cardiovascular: Cardiovascular: Reports no additional cardiovascular complaints Respiratory: Respiratory: Reports as per HPI Gastrointestinal: Gastrointestinal: Reports no additional gastrointestinal complaints Genitourinary: Genitourinary: Reports no additional female genitourinary complaints Musculoskeletal: Musculoskeletal: Reports no additional musculoskeletal complaints Integumentary/Breasts: Skin/Breast: Denies rash Neurologic: Reports system reviewed and no additional complaints, except as documented, Denies dizziness and Denies Sensory deficit (Neuro) Psychiatric: Psychiatric: Denies anxiety [facility] Past Medical History Medical History Osteoarthritis Social History Social History Household Members: Spouse and Children Housing: House Do you presently have visiting nurse or other home services: No Patient Tobacco Use Status: Former Tobacco user Use of substances other than those prescribed or required for medical reasons: No Advance Directives: Yes Advance Directives on File: Yes Advance Directives Date on File: 08/14/21 service: No Current occupational status: disabled Physical Exam Vital Signs: Vital Signs: Last Vital Signs Temp 97.9 F 08/15/21 15:35 Pulse 76 08/15/21 15:35 Resp 16 08/15/21 15:35 BP 151/119 H 08/15/21 15:35 Pulse Ox 94 08/15/21 15:35 BMI result Body Mass Index 27.6 Const: Other: elderly chronically ill Nutritional Appearance: obese Orientation/consciousness: oriented to person and patient oriented x3 Limitations: no limitations HEENT: Head: Yes normal to inspection Ears: external ears normal General nose exam: Normal external nose present Mouth: Normal oral and palatal mucosa present and oropharynx normal Throat: Yes posterior oropharynx normal Eyes: General: appearance normal, both eyes and all related structures Neck: Other: supple Chest: Other: right rib tenderness Resp: Auscultation: clear to auscultation bilaterally Cardio: Jugular venous distension: no JVD Rate: regular rate Rhythm: regular rhythm Heart sounds: S1 normal heart sound present and S2 normal heart sound present GI: Inspection: Yes normal to inspection Palpation (GI): Soft to palpation, nontender and No hepatosplenomegaly present Auscultation: normal bowel sounds Back/Spine/Pelvis: Other: old bruising upper thoracic spine with some tenderness Skin: Other: old abrasions left knee and left elbow, new abrasions left knee and left elbow Neuro: General: oriented to person and patient oriented x3 Cranial nerves: Yes CN's II-XII intact bilaterally Motor exam (neuro): 5/5 motor strength present throughout Sensory Exam: No Sensory deficit (Neuro) Extrem: General: Yes normal to inspection Psych: Appearance: grossly normal Course Reevaluation(s) Reevaluation #1: patient with nondisplaced rib 9,10 fracture MDM - Fall Lab Data Result diagrams: 08/15/21 11:52 08/15/21 11:52 Labs: Lab Results 08/15/21 08/15/21 08/15/21 Range/Units 11:52 11:52 12:38 WBC 11.2 H (4.8-10.8) X10*3/uL RBC 3.75 L (4.20-5.50) X10*6/uL Hgb 12.1 (12.0-16.0) g/dl Hct 37.2 (37.0-47.0) % MCV 99.2 H (80.0-98.0) fL MCH 32.3 (27.0-33.0) pg MCHC 32.5 (31.0-35.0) g/dl RDW 14.0 (11.0-16.0) % Plt Count 221 (160-400) X10*3/uL MPV 8.3 L (9.4-12.3) fL Immature Gran % (Auto) 0.4 (0.0-0.4) % Neut % (Auto) 89.7 H (45-73) % Lymph % (Auto) 5.2 L (20-40) % Talbot % (Auto) 3.9 (2-11) % Eos % (Auto) 0.4 (0-4) % Baso % (Auto) 0.4 (0-2) % Lymph # (Auto) 0.6 L (1.2-4.9) X10*3/uL Talbot # (Auto) 0.4 (0.1-1.2) X10*3/uL Eos # (Auto) 0.0 (0.0-0.4) X10*3/uL Baso # (Auto) 0.0 (0.0-0.2) X10*3/uL Abs Immat Gran (auto) 0.04 H (0.00-0.03) X10*3/uL Absolute Neuts (auto) 10.1 H (2.0-8.3) x10*3/uL Absolute Nucleated RBC 0.000 (0.0-0.012) X10*3/uL Nucleated RBC % (auto) 0.0 (0.0-0.2) /100WBC Sodium 135 (135-145) mmol/L Potassium 3.6 (3.3-5.1) mmol/L Chloride 98 (96-108) mmol/L Carbon Dioxide 27 (22-29) mmol/L Anion Gap 14 (12-20) BUN 14 (9-16) mg/dL Creatinine 0.88 (0.5-1.4) mg/dL Estim Creat Clear Calc 37.4 Estimated GFR > 60 Random Glucose 172 H (60-115) mg/dL Calcium 9.7 (8.4-10.2) mg/dL Influenza Type A (PCR) NEGATIVE (Negative) Influenza Type B (PCR) NEGATIVE (Negative) RSV RNA Qual (PCR) NEGATIVE (Negative) SARS-CoV-2 RNA (RT-PCR) NEGATIVE (Negative) Imaging Data Chest x-ray: Radiologist's impression: FINDINGS: Chest PA and lateral views reveal both lungs to be expanded and clear. The ill-defined density right lung apex likely calcification or granuloma in the right posterior third interspace The heart size and pulmonary vascularity is normal. No gross bony abnormality seen. Multiple views of right ribs reveal nondisplaced fracture right anterolateral ninth and likely 10th ribs.? XR/XR ribs RT min 3V w CXR1V IMPRESSION: Unremarkable chest exam? Discharge Plan Discharge Clinical Impression: Closed rib fracture Patient Disposition: Xfer [facility] Instructions: Rib Fracture (ED) Prescriptions: No Action cefuroxime axetil 250 mg tablet 250 mg PO BID 7 Days Qty: 14 0RF acetaminophen 325 mg Tablet 650 mg PO Q4H PRN (Reason: Pain) 0RF perphenazine 4 mg tablet 4 mg PO BID 0RF oxycodone 5 mg tablet 5 mg PO BID PRN (Reason: pain (scale score 4-6)) Qty: 30 0RF metformin 500 mg tablet 500 mg PO BID 30 Days Qty: 60 0RF pravastatin 40 mg tablet 40 mg PO BEDTIME 30 Days Qty: 30 0RF atenolol 25 mg tablet 25 mg PO DAILY 30 Days Qty: 30 0RF hydrochlorothiazide 25 mg tablet 25 mg PO DAILY 30 Days Qty: 30 0RF escitalopram oxalate 20 mg tablet 20 mg PO DAILY 30 Days Qty: 0 0RF Referrals: Physician,Unknown J [Primary Care Provider] - 1 week
[2021-08-15 09:59] VITALS: BP 148/72; BP 157/77; PULSE 77; PULSE 80; RESP 16; TEMP 36.8; O2SAT 97; BMI 27.6
[2021-08-15 10:22] VITALS: PULSE 73
--- NOTE | 2021-08-15 10:24 | PC.NURSE ---
Pt alert/oriented. Noted with multiple bruising to general body, multiple stages of healing. Lump/bruise to thoracic spine region. Scabs to b/l feet, swelling to left elbow. Pt reports feeling safe at home, denies physical abuse but states verbal aggression only.
[2021-08-15 10:39] VITALS: PULSE 73
--- NOTE | 2021-08-15 11:54 | PC.NURSE ---
difficult IV stick, this RN able to obtain labs/sent
[2021-08-15 11:57] LABS: MANUAL DIFF FLAG NO
[2021-08-15 11:58] LABS: Basophils Percent Auto 0.4 % (0-2); Eosinophils Percent Auto 0.4 % (0-4); Hematocrit 37.2 % (37.0-47.0); Hemoglobin 12.1 g/dl (12.0-16.0); Imm Gran Abs Auto 0.04 X10*3/uL (0.00-0.03); Imm Gran Pct Auto 0.4 % (0.0-0.4); Lymphocytes Absolute Auto 0.6 X10*3/uL (1.2-4.9); Lymphocytes Percent Auto 5.2 % (20-40); Mean Corpuscular HGB Conc 32.5 g/dl (31.0-35.0); Mean Corpuscular Hemoglobin 32.3 pg (27.0-33.0); Mean Corpuscular Volume 99.2 fL (80.0-98.0); Mean Platelet Volume 8.3 fL (9.4-12.3); Monocytes Absolute Auto 0.4 X10*3/uL (0.1-1.2); Monocytes Percent Auto 3.9 % (2-11); Neutrophils Absolute Auto 10.1 x10*3/uL (2.0-8.3); Neutrophils Percent Auto 89.7 % (45-73); Platelet Count 221 X10*3/uL (160-400); Red Blood Count 3.75 X10*6/uL (4.20-5.50); White Blood Count 11.2 X10*3/uL (4.8-10.8)
--- NOTE | 2021-08-15 12:06 | MHC.CM.ED ---
Received case management consult from Dr Ace. Patient was in the ER on 08/14. Short term rehab was recommended and placement was found. Patient decided to go home. Patient returned home and fell. Patient returned to ER. Physical therapy eval completed. Short term rehab is recommended again. Attempted to meet with patient. Patient sleeping. Attempted to reach patient's daughter, Meera, via telephone at [phone]. Left message requesting return telephone call. Attempted to reach patient's [place] via telephone at [phone]. Unable to leave a message. Referral has been broadcasted in [employer] at this time. [facility], [place], [facility] and [facility] are willing to offer a bed. Continue to monitor for d/c needs.
[2021-08-15 12:21] LABS: Anion Gap 14 (12-20); Blood Urea Nitrogen 14 mg/dL (9-16); Calcium 9.7 mg/dL (8.4-10.2); Carbon Dioxide 27 mmol/L (22-29); Chloride 98 mmol/L (96-108); Creatinine Clr Calc Pharmacy 37.4; Estimated Glomerular Filt Rate > 60; Glucose Random 172 mg/dL (60-115); Potassium 3.6 mmol/L (3.3-5.1); Sodium 135 mmol/L (135-145)
[2021-08-15 12:41] VITALS: BP 165/76; PULSE 78; RESP 16; TEMP 36.6; O2SAT 95
--- NOTE | 2021-08-15 13:02 | MHC.CM.ED ---
Received return telephone call from patient's daughter, Meera. Patient was upset patient was d/c'd home yesterday. T/W explained STR was arranged and patient decided to return home. Meera requesting [facility]. [facility] made aware and has been asked to go for ins auth. Continue to monitor for d/c needs.
[2021-08-15 13:28] LABS: Influenza A PCR NEGATIVE (Negative); Influenza B PCR NEGATIVE (Negative); Resp Syncy Virus RNA Qual PCR NEGATIVE (Negative); SARS COV2 PCR INHOUSE NEGATIVE (Negative)
[2021-08-15] MEDS: traMADoL HCL 50 MG TABLET PO (13:45)
[2021-08-15] MEDS: Acetaminophen 325 MG TABLET 975 MG PO (13:45)
[2021-08-15 15:35] VITALS: BP 151/119; PULSE 76; RESP 16; TEMP 36.6; O2SAT 94
--- NOTE | 2021-08-15 15:58 | MHC.CM.ED ---
CM met with patient. Pt is agreeable to STR at [facility], pending insurance authorization. Pt understands that if insurance authorization is not obtained shortly, she will remain in ED overnight. CM to follow for d/c needs.
--- NOTE | 2021-08-15 17:34 | MHC.CM.ED ---
CM received call from Larissa Dominguez at [facility]. Auth has been obtained and facility is aware that pt will be transported there tonight. Action booked for 6:30 tonight. Patient aware and agreeable. RN aware, will order patient dinner. Med Nec completed. Daughter/HCP called for update and notified of bed and transport tonight. Given contact information for [facility]. CM to follow for d/c needs.
[2021-08-15 17:42] VITALS: BP 174/87; PULSE 79; RESP 16; TEMP 37.1; O2SAT 96
--- NOTE | 2021-08-15 18:07 | MHC.CM.ED ---
Pt has [facility]. [facility] is contracted with [facility]. [facility] called and booked transport to [facility] for 8pm, as next available. Action aware. CM to follow for d/c needs..
== END 2021-08-15 18:59 ==
PROVIDERS: Emergency Provider Emergency Medicine; PCP Physician Assistant Medical
DX: S22.41XA Multiple fractures of ribs, right side, initial encounter for closed fracture (principal); W01.10XA Fall on same level from slipping, tripping and stumbling with subsequent striking against unspecified object, initial encounter; Y93.9 Activity, unspecified; Y92.9 Unspecified place or not applicable; Y99.9 Unspecified external cause status; Z20.822 Contact with and (suspected) exposure to COVID-19; Z79.899 Other long term (current) drug therapy; Z87.891 Personal history of nicotine dependence
CPT/HCPCS: 0241U; 36415; 71045; 71101; 80048; 85025; 97162; 99284; 99285

== ENCOUNTER 2021-08-16 06:53 | Outpatient (REF) | payer MEDICARE, SELFPAY ==
[2021-08-16 06:58] LABS: MANUAL DIFF FLAG NO
[2021-08-16 07:22] LABS: Basophils Absolute Auto 0.1 X10*3/uL (0.0-0.2); Basophils Percent Auto 0.6 % (0-2); Eosinophils Absolute Auto 0.2 X10*3/uL (0.0-0.4); Eosinophils Percent Auto 2.1 % (0-4); Hematocrit 33.3 % (37.0-47.0); Hemoglobin 10.8 g/dl (12.0-16.0); Imm Gran Abs Auto 0.03 X10*3/uL (0.00-0.03); Imm Gran Pct Auto 0.4 % (0.0-0.4); Lymphocytes Absolute Auto 1.6 X10*3/uL (1.2-4.9); Lymphocytes Percent Auto 18.3 % (20-40); Mean Corpuscular HGB Conc 32.4 g/dl (31.0-35.0); Mean Corpuscular Hemoglobin 32.1 pg (27.0-33.0); Mean Corpuscular Volume 99.1 fL (80.0-98.0); Mean Platelet Volume 8.8 fL (9.4-12.3); Monocytes Absolute Auto 0.6 X10*3/uL (0.1-1.2); Monocytes Percent Auto 7.3 % (2-11); Neutrophils Absolute Auto 6.1 x10*3/uL (2.0-8.3); Neutrophils Percent Auto 71.3 % (45-73); Platelet Count 224 X10*3/uL (160-400); Red Blood Count 3.36 X10*6/uL (4.20-5.50); Red Cell Distribution Width 13.9 % (11.0-16.0); White Blood Count 8.5 X10*3/uL (4.8-10.8)
[2021-08-16 07:44] LABS: Alanine Aminotransferase 18 U/L (0-31); Albumin Level 3.3 g/dL (3.5-5.0); Alkaline Phosphatase 93 U/L (39-117); Anion Gap 13 (12-20); Aspartate Amino Transferase 14 U/L (5-31); Bilirubin Total 0.5 mg/dL (0.0-1.0); Blood Urea Nitrogen 16 mg/dL (9-16); Calcium 8.8 mg/dL (8.4-10.2); Carbon Dioxide 30 mmol/L (22-29); Chloride 99 mmol/L (96-108); Estimated Glomerular Filt Rate > 60; Glucose Random 110 mg/dL (60-115); Potassium 3.9 mmol/L (3.3-5.1); Sodium 138 mmol/L (135-145); Total Protein 5.5 g/dL (6.5-8.0)
== END 2021-08-16 06:54 | disposition home or self-care (01) ==
LOC: HO.MMNH1L 06:53
PROVIDERS: Visit Provider Family Medicine
DX: E78.5 Hyperlipidemia, unspecified (principal)
CPT/HCPCS: 36415; 80053; 85025

== ENCOUNTER 2021-08-20 | Outpatient (REF) | payer MEDICARE, SELFPAY ==
[2021-08-20 06:45] LABS: MANUAL DIFF FLAG NO
[2021-08-20 06:55] LABS: Basophils Absolute Auto 0.1 X10*3/uL (0.0-0.2); Basophils Percent Auto 0.9 % (0-2); Eosinophils Absolute Auto 0.2 X10*3/uL (0.0-0.4); Eosinophils Percent Auto 3.4 % (0-4); Hematocrit 30.2 % (37.0-47.0); Hemoglobin 9.8 g/dl (12.0-16.0); Imm Gran Abs Auto 0.04 X10*3/uL (0.00-0.03); Imm Gran Pct Auto 0.6 % (0.0-0.4); Lymphocytes Absolute Auto 1.4 X10*3/uL (1.2-4.9); Mean Corpuscular HGB Conc 32.5 g/dl (31.0-35.0); Mean Corpuscular Hemoglobin 31.5 pg (27.0-33.0); Mean Corpuscular Volume 97.1 fL (80.0-98.0); Mean Platelet Volume 8.7 fL (9.4-12.3); Monocytes Absolute Auto 0.7 X10*3/uL (0.1-1.2); Monocytes Percent Auto 9.7 % (2-11); Neutrophils Absolute Auto 4.6 x10*3/uL (2.0-8.3); Neutrophils Percent Auto 65.4 % (45-73); Platelet Count 191 X10*3/uL (160-400); Red Blood Count 3.11 X10*6/uL (4.20-5.50); Red Cell Distribution Width 13.5 % (11.0-16.0)
[2021-08-20 07:21] LABS: Anion Gap 12 (12-20); Blood Urea Nitrogen 18 mg/dL (9-16); Calcium 8.1 mg/dL (8.4-10.2); Carbon Dioxide 27 mmol/L (22-29); Chloride 93 mmol/L (96-108); Estimated Glomerular Filt Rate > 60; Glucose Random 104 mg/dL (60-115); Potassium 4.2 mmol/L (3.3-5.1); Sodium 128 mmol/L (135-145)
== END 2021-08-20 00:01 ==
LOC: HO.MMNH1L
PROVIDERS: Visit Provider Family Medicine
DX: E78.5 Hyperlipidemia, unspecified (principal)
CPT/HCPCS: 36415; 80048; 85025